=== PATIENT | male | born 2000 | race Caucasian/White ===

== ENCOUNTER 2025-03-14 12:56 | Emergency (ER) | payer BC, SELFPAY ==
--- OUTSIDE RECORDS SUMMARY | 2025-03-14 12:57 | XMS_ITS | Clinical Summary ---
Author Organization [place] Address [address] [place] [address] Care Team Providers Care Lubricator Granulator Name Role Phone No Ref-Primary, Physician Primary Care Provider Allergies Active Allergy Reactions Criticality Noted Date Comments No Known Drug Allergy 08/06/2001 Medications AMOXIL SUSR 250 MG/5ML OR one tsp tid for ten days qns 0 1 Active Additional Information Patient not taking.Reported on 02/24/2025 cyclobenzaprine (FLEXERIL) 5 MG tabletIndicatio ns:Lateral pain of left hip,Muscle spasm,Piriformi s muscle pain,Numbness,P ain of left lower extremity Take 1 tablet (5 mg) by mouth nightly as needed for muscle spasms. 30 tablet Active Active Problems Problem Noted Date Diagnosed Date NO ACTIVE PROBLEMS Encounters Date Type Department Care Team Description 02/24/2025 8:20 AM CDT Office Visit [facility] [address] [phone] Emma Simmons APRN CNP Piriformis muscle pain (Primary Dx); Lateral pain of left hip; Muscle spasm; Numbness; Pain of left lower extremity 02/24/2025 Travel 02/02/2025 Telephone [facility] [address] [phone] Emma Simmons APRN CNP 01/27/2025 Transcribe Orders GENERIC EXTERNAL DATA DEPARTMENT Cindy Cordero MD Lateral pain of left hip (Primary Dx); Thigh pain; Joint pain from Last 3 Months Family History Medical History Relation Comments Diabetes Paternal Grandmother Cancer No family hx of Heart Disease No family hx of Relation Status Comments Paternal Grandmother Social History Tobacco Use Types Packs/Day Years Used Date Smoking Tobacco: Never Alcohol Use Standard Drinks/Week Comments No 0 (1 standard drink = 0.6 oz pur e alcohol) Sex and Gender Information Value Date Recorded Sex Assigned at Not on file Legal Sex 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 Gender Identity Not on file Sexual Orientation Not on file Last Filed Vital Signs Vital Sign Reading Time Taken Comments Blood Pressure 120/78 02/24/2025 8:25 AM CDT Pulse 61 02/24/2025 8:25 AM CDT Temperature 36.1 C (97 F) 12/30/2002 1:35 PM WEB SERVICES DEVELOPER Respiratory Rate 16 02/24/2025 8:25 AM CDT Oxygen Saturation 99% 02/24/2025 8:25 AM CDT Inhaled Oxygen Concentration - - Weight 97.5 kg (215 lb) 02/24/2025 8:25 AM CDT Height 185.4 cm (6' 1) 02/24/2025 8:25 AM CDT Body Mass Index 28.37 02/24/2025 8:25 AM CDT Plan of Treatment Upcoming Encounters Date Type Department Care Team (Late st Contact Info) Description 03/16/2025 10:40 AM CDT Therapy Visit [facility] [address] [phone] Emma Simmons APRN APPLICATION CHEMIST [address] [place], [place] [phone] Christie Powell, PT YANELI MACK JACOB [address] [place] [address] [place] [id number] 03/23/2025 10:40 AM CDT Therapy Visit [facility] [address] [facility] [address] [place] [phone] Emma Simmons APRN APPLICATION CHEMIST [address] [place], [place] [phone] Christie Powell, PT YANELI MACK JACOB [address] [place] [address] DR MACK JACOB, [place] [id number] 03/23/2025 4:10 PM CDT Office Visit [facility] [place] [address] [facility] [address] [place] [phone] Edwar Person MD [address] [facility] [address] [place], [place] [phone] Health Maintenance Due Date Last Done Comments ADVANCE CARE PLANNING 1999 ANNUAL REVIEW OF HM ORDERS 1999 HIV SCREENING 2014 HEPATITIS C SCREENING 2017 COVID-19 Vaccine ( season) 2024 03/17/2022, 01/07/2021, 12/11/2020 YEARLY PREVENTIVE VISIT 08/09/2024 08/09/2023 PHQ-2 (once per calendar year) 2024 INFLUENZA VACCINE (Season Ended) 2025 08/25/2022, 09/03/2021, 09/21/2020, Additional history exists DTAP/TDAP/TD IMMUNIZATION (8 - Td or Tdap) 07/12/2027 07/12/2017, 04/14/2011, 03/25/2004, Additional history exists ZOSTER IMMUNIZATION (1 of 2) 2049 Pneumococcal Vaccine: Pediatrics (0 to 5 Years) and At-Risk Patients (6 to 49 Years) Aged Out 03/05/2001, 06/28/2000 No longer eligibl e based on patient's age to complete this topic HPV IMMUNIZATION Completed 09/11/2016, 06/07/2013 MENINGITIS IMMUNIZATION Completed 07/12/20 17, 09/11/2016, 04/14/2011 HEPATITIS B IMMUNIZATION Completed 018, 08/15/2017, 07/12/2017, Additional history exists MENINGITIS B IMMUNIZATION Aged Out No longer eligible based on patient's age to complete this topic Insurance [facility] Care Teams Lubricator Granulator Relationship Specialty Start Date End Date No Ref-Primary, Physician PCP - General 02/24/25
--- OUTSIDE RECORDS SUMMARY | 2025-03-14 12:57 | XMS_ITS | Encounter Summary ---
Author Organization [place] Address [address] [place] [address] Care Team Providers Care Retail Administrative Assistant Name Role Phone Unavailable Primary Care Provider Unavailabl e Encounter Details Date Type Department Care Team (Late st Contact Info) Description 02/02/2025 Telephone [facility] [address] [place] [phone] Emma Simmons APRN [address] [address] Social History Tobacco Use Types Packs/Day Years Used Date Smoking Tobacco: Never Alcohol Use Standard Drinks/Week Comments No 0 (1 standard drink = 0.6 oz pur e alcohol) Sex and Gender Information Value Date Recorded Sex Assigned at Not on file 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 Radha Bella on 02/02/2025 at 2:35 PM documented in this encounter Plan of Treatment Upcoming Encounters Date Type Department Care Team (Late st Contact Info) Description 03/16/2025 10:40 AM CDT Therapy Visit [facility] [address] [facility] [address] [place] [phone] Emma Simmons APRN MAPPING TECHNICIAN [address] [place] [address] Christie Powell, PT [address] [place] [id number] 03/23/2025 10:40 AM CDT Therapy Visit [facility] [address] [facility] [address] [place] [phone] Emma Simmons APRN MAPPING TECHNICIAN [address] [place] [address] Christie Powell, PT [address] [place] [phone] 03/23/2025 4:10 PM CDT Office Visit [facility] [place] [address] [facility] 3rd [place] [phone] Edwar Person MD [address] [facility] [address] [place], [place] [phone] documented as of this encounter Visit Diagnoses Not on filedocumented in this encounter
--- OUTSIDE RECORDS SUMMARY | 2025-03-14 12:57 | XMS_ITS | Encounter Summary ---
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 Gender Identity Not on file Sexual Orientation Not on file documented as of this encounter Plan of Treatment Upcoming Encounters Date Type Department Care Team (Late st Contact Info) Description 03/16/2025 10:40 AM CDT Therapy Visit [facility] [address] [phone] Emma Simmons APRN RESIDENT CARE TECHNICIAN [address] [place], [place] [address] Christie Powell, PT [facility] MACK JACOB [address] [place] [address] [place] [id number] 03/23/2025 10:40 AM CDT Therapy Visit [facility] [address] [facility] [address] [place] [phone] Emma Simmons APRN RESIDENT CARE TECHNICIAN [address] [place], [place] [phone] Christie Powell, PT YANELI MACK JACOB [address] [place] [address] [place] [phone] 03/23/2025 4:10 PM CDT Office Visit [facility] [place] [address] [facility] 3rd [place] [phone] Edwar Person MD [address] [facility] [address] [place], [place] [address] documented as of this encounter Visit Diagnoses Not on filedocumented in this encounter Care Teams Stock Associate Relationship Specialty Start Date End Date No Ref-Primary, Physician PCP - General 02/24/25 documented as of this encounter
--- OUTSIDE RECORDS SUMMARY | 2025-03-14 12:57 | XMS_ITS | Encounter Summary ---
Author Organization [place] Address [address] [place] [address] Care Team Providers Care Despatch Clerk Name Role Phone No Ref-Primary, Physician Primary Care Provider Reason for Referral * Rehab Therapy Physical Therapy (Priority: 1-2 Weeks) - Authorized Specialty Diagnoses / Procedures Referred By Jose Luis simpson Referred To Contact Physical Therapy Diagnoses Lateral pain of left hip Muscle spasm Piriformis muscle pain Numbness Pain of left lower extremity [address] [address] Phone: tel: Referral ID Status Reason Start Date Expiration Date V isits Requested Visits Authorized [id number] Authorized 03/16/2025 08/07/2025 15 13 Question Answer Course of Action: Evaluation and Treatment Specialty Services: Per Associated Diagnosis Patient Scheduling Instructions: [facility] will call you to coordinate your care as prescribed by your provider. If you don't hear from a sales representative printing within 2 business days, please call . Comments Please be aware that coverage of these services is subject to the terms and limitations of your health insurance plan. Call member services at your health plan with any benefit or coverage questions. [facility] will call you to coordinate your care as prescribed by your provider. If you don't hear from a sales representative printing within 2 business days, please call . Reason for Visit * Reason Comments New Patient New Med Spine Leonidas * Consultation (Routine) - Authorized Specialty Diagnoses / Procedures Referred By Contbrie t Referred To Contact Diagnoses Lateral pain of left hip Thigh pain Joint pain [place] [address] Phone: tel: fax: Referral ID Status Reason Start Date Expiration Date V isits Requested Visits Authorized [id number] Authorized 01/08/2025 07/07/2025 [id number] Encounter Details Date Type Department Care Team (Latest Contact Info) Description 02/24/2025 8:20 AM CDT Office Visit [facility] [address] [place] [address] Emma Simmons APRN GETTERING FILAMENT MACHINE OPERATOR [address] [place] [id number] Piriformis muscle pain (Primary Dx); Lateral pain of left hip; Muscle spasm; Numbness; Pain of left lower extremity Social History Tobacco Use Types Packs/Day Years Used Date Smoking Tobacco: Never Alcohol Use Standard Drinks/Week Comments No 0 (1 standard drink = 0.6 oz pur e alcohol) Sex and Gender Information Value Date Recorded Sex Assigned at Not on file 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 Sex Male 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 Gender Identity Not on file Sexual Orientation Not on file documented as of this encounter Last Filed Vital Signs Vital Sign Reading Time Taken Comments Blood Pressure 120/78 02/24/2025 8:25 AM CDT Pulse 61 02/24/2025 8:25 AM CDT Temperature - - Respiratory Rate 16 02/24/2025 8:25 AM CDT Oxygen Saturation 99% 02/24/2025 8:25 AM CDT Inhaled Oxygen Concentration - - Weight 97.5 kg (215 lb) 02/24/2025 8:25 AM CDT Height 185.4 cm (6' 1) 02/24/2025 8:25 AM CDT Body Mass Index 28.37 02/24/2025 8:25 AM CDT documented in this encounter Patient Instructions * Patient Instructions* Emma Simmons APRN GETTERING FILAMENT MACHINE OPERATOR - 02/24/2025 8:20 AM CDT It was a pleasure seeing you in the clinic today. As discussed, we made the following updates to your plan of care: An order for physical therapy was added today. Physical therapy schedulers should call you in the next few days to schedule an appointment. You may also call [phone] to arrange an appointment atany of the [facility] outpatient physical therapy locations. It will be very important for you to do the physical therapy exercises on a regular basis to decrease your pain and prevent future flares of pain. I added an order for left piriformis steroid injection with Dr Person. You will receive a call to help schedule the appointment. Please let me know if you have any questions or concerns. Cyclobenzaprine was prescribed today. This is a muscle relaxer that may be taken for muscle tightness and pain as needed. This drug can cause sedation / drowsiness, so when taking this medication avoid driving or other tasks that require you to be alert. Do not drink alcohol while taking this medication. Let's plan to follow up 2 weeks after the steroid injection to see how you are doing and talk aboutnext steps. Thank you, Emma Simmons NP Physical Medicine and Rehabilitation, Medical Spine PM&R clinic PM&R clinic documented in this encounter Progress Notes * Emma Simmons APRN CNP - 02/24/2025 8:20 AM CDT Today's Date: 02/24/2025 Patient seen at the request of Cindy Cordero for an opinion and evaluation of left leg pain. HISTORY OF PRESENT ILLNESS: Stevenson Willis is a 24 year old male who presents with a chief complaint of pain. He was seen today in the clinic. 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 During the program he began to have severe pain affecting the left hip, buttocks, and radiating to the left knee. He had asignificant amount of trouble walking down stairs. He has seen multiple specialists in regards to this issue: he estimates seeing 8 providers thus far, between the [place] [facility] and [facility]. Workup thus far has included X rays and MRIs of the knee, hip, and back. Today he describes: -Pain radiating from left lateral hip, lateral left thigh, posterolateral left knee, into the left calf -describes quality of pain varies: Tight, locked up, throbbing, tingling, sharp He does not have back pain per se, but notes pressing a particular area in the left lumbosacral junction is uncomfortable/tender. He notices fairly immediate numbness in the left leg when he sits on the toilet. He otherwise does not notice any numbness at other times a day. When in a squatting position, he finds left leg range of motion is more limited. Additionally he finds that he loses his balance or feels weaker with the left leg when he tries to stand from a squatting position. He also feels somewhat weak when doing lunges with his left leg extended to the back. He does not notice any changes with his gait. The pain is most bothersome at night. He finds it hard to get comfortable to get to sleep. He notes that the initial injury in 2021 was severely painful. The current level of pain is less severe than in 2021, but ongoing/persistent. He did multiple rounds of physical therapy both with the [place] [facility] and through [facility] ([facility]) without any significant improvement. He states that stretching programs in the past have not helped. Since the injury he stopped running and swimming. He did try a left intra-articular hip diagnostic injection 12/10/2024 which helped with groin pain only. Unfortunately he had unchanged ongoing gluteal, thigh, and knee pain which were the more bothersome areas of pain. As such, orthopedics recommended he would not be a good candidate for left hip arthroscopy. Aggravating factors include: Standing, sitting, exercise, long car rides Relieving factors include: None Today, he rates the pain 3/10. Patient states sleep is negatively affected. He denies falls, weakness, bowel or bladder incontinence, saddle anesthesia, unintentional weight loss, fevers/chills, or night sweats. PRIOR INJURIES/TREATMENT: Ice/Heat: has tried both Brace: none Physical Therapy: +PT in [place] and in [place] [facility] (for [facility]) - none has significantly helped - Current Pain Medications - none - Prior/Trialed Pain Medications - ibuprofen Prior Procedures: Date Procedure Improvement (%) 12/10/24 Diagnostic left hip steroid injection Helped with anterior hip/groin pain, radiating LLE pain was the same Prior Related Surgery: none Other (acupuncture, OMT, CMM, TENS, DME, etc.): Tried chiropractor, didn't help Specialists Seen - (with most recent, available notes and clinic visits reviewed) 1. [place] [facility] - record not available 2. [facility] 3. [facility] - Dr Cordero IMAGING - reviewed CT Left hip 01/21/2024 - [facility] CONCLUSION: 1. Decreased anteversion/borderline slight retroversion of the superior acetabulum. 2. No evidence of significant femoral cam morphology. 3. No CT evidence of joint space narrowing or premature osteoarthritis. MRI left knee - 01/21/2024 - [facility] CONCLUSION IMPRESSION: 1. No internal derangement identified including no evidence of meniscal tear, ligamentous injury, fracture or chondral defect. Normal appearance of the IT band and imaged distal biceps femoris. 2. No joint effusion. MRI L hip [facility] 01/09/2024 1. Tiny linear defect at the anterior chondrolabral junction is suspicious for a partial undersurface labral detachment. 2. Otherwise unremarkable left hip MRI without contrast. MRI lumbar spine 10/22/2023 FINDINGS: Normal vertebral body alignment. No fractures. No vertebral body loss of height. No spondylolisthesis. No ligamentous injury. No suspicious osseous lesions. Normal conus terminates at L2. T12-L1 L1-2 L2-3: No spinal canal or neural foraminal narrowing. L3-4: No spinal canal neural foraminal narrowing. L4-5: No spinal canal neural foraminal narrowing. L5-S1: No narrowing of spinal canal. No vanna impingement of the traversing S1 nerve roots. No neural foraminal narrowing. Normal visualized SI joints. Normal paraspinal soft tissues. Review Of Systems: I am responding to those symptoms which are directly relevant to the specific indication for my consultation. I recommend that the patient follow up with their primary or referring provider to pursueany other symptoms which may be of concern. Medical History: Chronic left lower extremity pain He has a past surgical history that includes no history of surgery. Family History His family history includes Diabetes in his paternal grandmother. 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 Performs ADLs/IADLs independently. He reports that he has never smoked. He does not have any smokeless tobacco history on file. He reports that he does not drink alcohol and does not use drugs. Current Medications: He has a current medication list which includes the following prescription(s): amoxil. Allergies: -- No Known Drug Allergy PHYSICAL EXAM BP 120/78 (BP Location: Right arm, Patient Position: Sitting, Cuff Size: Adult Large) Pulse 61 Resp 16 Ht 1.854 m (6' 1) Wt 97.5 kg (215 lb) SpO2 99% BMI 28.37 kg/m?? --CONSTITUTIONAL: Vital signs as above. No acute distress. The patient is well nourished and well groomed. --PSYCHIATRIC: The patient is awake, alert, oriented to person, place, time and answering questionsappropriately with clear speech. Appropriate mood and affect --SKIN: Posterior torso is clean, dry, intact without rashes. --RESPIRATORY: Normal rhythm and effort. No abnormal accessory muscle breathing patterns noted. --GROSS MOTOR: Easily arises from a seated position. Toe walking and heel walking are normal. Standing at the counter for stability, is able to stand on one leg and perform 5 reps lifting onto toes on both sides --STANDING EXAMINATION: Gait is non-antalgic. Normal lumbar lordosis noted, no lateral shift. --LOWER EXTREMITY MOTOR TESTING: Plantar flexion left 5/5, right 5/5 Dorsiflexion left 5/5, right 5/5 Great toe MTP extension left 5/5, right 5/5 Knee flexion left 5/5, right 5/5 Knee extension left 5/5, right 5/5 Hip flexion left 5/5, right 5/5 --MUSCULOSKELETAL: Lumbar spine inspection reveals no evidence of deformity. Range of motion is notlimited in lumbar flexion, extension, lateral rotation. No tenderness to palpation lumbar spine. Straight leg raise negative bilaterally. Facet loading maneuvers are negative bilaterally. Pain with palpation of the left piriformis. Piriformis seated stretch positive on the left. No pain with palpation of the right piriformis No pain with piriformis seated stretch test on the right --SACROILIAC JOINT: No pain with palpation of SI joint. Distraction negative. Saman negative. Josue's negative bilaterally. Gaenslen's negative bilaterally. Sacroiliac Joint Compression Test negative bilaterally. Sacral Thrust/Georgetown's Test negative bilaterally. --HIPS: Full range of motion bilaterally. FABERs negative bilaterally. No pain with logrolling. No pain with palpation of the greater trochanters. --NEUROLOGIC: 2/4 patellar and achilles reflexes bilaterally. Sensation to light touch is intact inthe bilateral L4, L5, and S1 dermatomes. No clonus. --VASCULAR: Warm lower limbs bilaterally. There is no pitting edema of the bilateral lower extremities. 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 He has undergone considerable diagnostic workup including X rays and MRIs of the knee, hip, and back. He has experienced incomplete/inadequate symptomatic relief from repeated courses of physical therapy, diagnostic left hip injection, and orthopedics evaluations. He has ongoing pain radiating from left lateral hip, lateral left thigh, posterolateral left knee, into the left calf. There is intermittent left leg numbness. On exam today there is pain with palpation of the left piriformis and positive piriformis stretch test on the left. PLAN: -The available imaging/reports reviewed -Add diagnostic/therapeutic left piriformis muscle steroid injection with Dr. Person. I asked him to keep a close eye on the level of pain after the steroid injection (keep a pain diary if needed) tobetter understand the diagnostic response. If he does have a diagnostic response but not a therapeutic response, can consider Botox injections instead -Trial cyclobenzaprine at bedtime PRN. We reviewed that this muscle relaxer can cause drowsiness and to avoid activities which require concentration, including driving and that this medicine should not be taken with alcohol. Patient expressed understanding. - Add an order for PT specific for left piriformis - We did discuss the option of updating the MRI of the lumbar spine. If there is no diagnostic or therapeutic relief after the left piriformis muscle steroid injection, would suggest this as a next step - RTC for procedure Ready to learn, no apparent learning barriers. Education provided on treatment plan according to patient's preferred learning style. Patient verbalizes understanding. Emma Simmons NP Physical Medicine & Rehabilitation 85 minutes spent by me on the date of the encounter doing chart review, history and exam, documentation and further activities per the note documented in this encounter Plan of Treatment Upcoming Encounters Date Type Department Care Team (Late st Contact Info) Description 03/16/2025 10:40 AM CDT Therapy Visit [address] [phone] Emma Simmons APRN [facility] [place] [address] Christie Powell, PT [address] [place] [id number] 03/23/2025 10:40 AM CDT Therapy Visit [address] [place] [phone] Emma Simmons APRN [facility] [place] [address] Christie Powell, PT [address] [place] [id number] 03/23/2025 4:10 PM CDT Office Visit [facility] [address] [place] [address] [address] [place] [phone] Edwar Person MD [address] [place] [address] [address] [place] [address] Scheduled Referrals Name Type Priority Associated Diagnoses Orde r Schedule Physical Therapy Pharmacy Account Director Referral Referral Priority: 1-2 Weeks Lateral pain of left hip Muscle spasm Piriformis muscle pain Numbness Pain of left lower extremity Expected: 02/24/2025 (Approximate), Expires: 02/24/2026 documented as of this encounter Visit Diagnoses Diagnosis Piriformis muscle pain- Primary Mylagia and myositis, unspecified Lateral pain of left hip Pain in joint, pelvic region and thigh Muscle spasm Spasm of muscle Numbness Disturbance of skin sensation Pain of left lower extremity documented in this encounter Care Teams Despatch Clerk Relationship Specialty Start Date End Date No Ref-Primary, Physician PCP - General 02/24/25 documented as of this encounter
--- OUTSIDE RECORDS SUMMARY | 2025-03-14 12:57 | XMS_ITS | Clinical Summary ---
Author Organization [facility] Address [address] [place] [address] Care Team Providers Care Transfer Table Operator Name Role Phone Pcp, No Primary Care Provider Unavailabl e Allergies No known active allergies Medications valACYclovir (Valtrex) 1 gram tabletIndication s:Recurrent cold sores,Genital herpes simplex, unspecified site Take 1 Tablet (1,000 mg) by mouth every 12 hours. As needed for flare-ups. 01/28/2024 Active Active Problems No known active problems Immunizations Immunization Administration Dates Next Due Adenovirus Type 4 and 7 07/12/2017 COVID-19 vaccine (Moderna 100mcg/0.5mL) PF, MDV 03/17/2022,01/07/2021,12/11/2020 DTP 03/25/2004, 9,1999,05/18 DTaP 1999,1999,1999 DTaP-HIB (TriHIBIT) 06/28/2000 HIB HbOC (HibTITER) 1999,1999,1998 HPV 9 (Gardasil 9) 09/11/2016 HepA-HepB (Twinrix) 05/22/2018,08/15/2017,2016 Hepatitis A (Peds) 09/11/2016 Hepatitis B (Peds) 01/19/2000,1999, 999 Hepatitis B, Unspecified 01/19/2000,1999,0 1999 Human Papilloma Virus Vaccine 06/07/2013 Inactivated Polio Vaccine 08/15/2017,,01/19/2000,07/19,1999 Influenza A (H1N1), Inactivated 11/24/2009,09/16 Influenza Virus, Unspecified 08/25/2022, 09/03/2021,09/21/2020,09/23,09/11/2017 Influenza, IIV3 (Age 6-35 mos) 10/07/2012,2010 Influenza, IIV3 (Age >=3 years) 10/07/20 12,10/13/2011,08/26/2008,08/21,09/12/2006 Influenza, Injectable, Mdck, Quadrivalent, W/preservative 09/11/2017 Chadian Encephalitis 07/04/2021,06/03/2021 MENINGOCOCCAL VACCINE 2 VIAL 2MO-55YO (MENVEO) 09/11/2016 MMR 03/25/2004,06/28/2000 Meningococcal Vaccine (Menactra) 07/12/2017,04/05 Pneumococcal conj 7-Valent (Prevnar 7) 1,06/28/2000 Rotavirus Pentavalent (ROTATEQ) 1999 Tdap 04/14/2011 Tdap, Unspecified 07/12/2017 Typhoid (injectable) 10/07/2019,08/15/2017 Varicella Vaccine 08/15/2017, 7,04/14/2011,06/28 Family History Medical History Relation Name Comments Good Health Father Good Health Mother Diabetes Paternal Grandmother Relation Name Status Comments Father Alive Mother Alive Paternal Grandmother Social History Tobacco Use Types Packs/Day Years Used Date Smoking Tobacco: Never Smokeless Tobacco: Never Tobacco Cessation:Counseling Given: Yes Alcohol Use Standard Drinks/Week Comments Yes 0 (1 standard drink = 0.6 oz pur e alcohol) 2 times per month PHQ-2 Answer Date Recorded PHQ-2 TOTAL SCORE 0 12/31/2023 Social Connections Answer Date Recorded Frequency of Communication with Friends and Fami ly 0 08/09/2023 Financial Resource Strain Answer Date R ecorded Difficulty of Paying Living Expenses 3 08/09/2023 Difficulty of Paying Living Expenses Not on file 08/09/2023 Food Insecurity Answer Date Recorded Worried About Running Out of Food in the Last Ye ar 1 08/09/2023 Transportation Needs Answer Date Record ed Lack of Transportation (Medical) 1 08/09/2023 Housing Stability Answer Date Recorded Unable to Pay for Housing in the Last Year 1 08/09/2023 Sex and Gender Information Value Date Recorded Sex Assigned at Not on file 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 Gender Identity Not on file Sexual Orientation Not on file Obstetrics History Last Filed Vital Signs Vital Sign Reading Time Taken Comments Blood Pressure 106/74 05/04/2024 2:45 PM CDT Pulse 70 05/04/2024 2:45 PM CDT Temperature 36.9 C (98.4 F) 05/04/2024 2:45 PM CDT Respiratory Rate 18 05/04/2024 2:45 PM CDT Oxygen Saturation 97% 05/04/2024 2:45 PM CDT Inhaled Oxygen Concentration - - Weight 94.7 kg (208 lb 11.2 oz) 05/04/2024 2:45 PM CDT Height 185.4 cm (6' 1) 12/31/2023 8:08 AM 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 Body Mass Index 27.53 12/31/2023 8:08 AM 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 Plan of Treatment Health Maintenance Due Date Last Done Comments HIV for age 15-65 2014 Hepatitis C screening for age 18-79 2017 COVID-19 vaccine series ( season) 2024 03/17/2022, 01/07/2021, 12/11/2020 BMI (ht and wt on same day) for age 18+ 12/31/2024 12/31/2023, 09/20/2023, 08/09/2023, Additional history exists Depression screening for age 12+ 12/31/2024 12/31/2023, 08/09/2023 Influenza Vaccine (Season Ended) 2025 08/25/2022, 09/03/2021, 09/21/2020, Additional history exists Tetanus booster 07/12/2027 07/12/2017, 04/14/2011 Pneumococcal series for age 6-49 Aged Out 03/05/2001, 06/28/2000 No longer eligibl e based on patient's age to complete this topic HPV series for age 9-26 Completed 09/11/2016, 06/07 Tdap Completed 07/12/2017, 04/14/2011 Insurance * Guarantor: Stevenson Willis Account Type Relation to Patient Date of Phone Billing Address Personal/Family Self [address] [place] [address] [facility] * Guarantor: Stevenson Willis Account Type Relation to Patient Date of Phone Billing Address Workers Comp Self [address] [place] [address] Care Teams Transfer Table Operator Relationship Specialty Start Date End Date Pcp, No . PCP - General 12/28/14
[2025-03-14 13:01] VITALS: BP 118/88; PULSE 67; RESP 18; TEMP 36.5; O2SAT 97; BMI 27.7
--- NOTE | 2025-03-14 13:20 | ED.GENADULT ---
HPI - General Adult General Chief complaint: Extremity Pain/Injury, Upper Stated complaint: fish hook in L index finger Time Seen by Provider: 03/14/25 13:00 History of Present Illness HPI narrative: Patient is a 24-year-old gentleman who is up-to-date on his tetanus shot who comes in with a barbed fishing hook in his left index finger palmar surface distal. He is intact neurologically. Apparently he helped himself a big [place] and when he was taking the fish off the hook he imbedded into his finger. He is otherwise feeling fine no other complaints. Related Data Home Medications ?Medication ?Instructions ?Recorded ?Confirmed No Known Home Medications 03/14/25 03/14/25 Allergies Allergy/AdvReac Type Severity Reaction Status Date / Time No Known Drug Allergies Allergy Verified 03/14/25 13:06 Review of Systems Status of ROS: Reports: 10 or more systems reviewed and unremarkable except as noted in History and below PFSH PFS Social History Smoking Status: Never smoker How often do you have a drink containing alcohol: 2-3 times a week How often do you have six or more drinks on one occasion: Never AUDIT-C Alcohol total score: 3 Non-prescribed substance use: denies use Exam Const: Vital Signs, click to edit/add: Vital Signs - 24 hr 03/14/25 13:01 Temperature 97.7 F Pulse Rate [Pulse Oximeter] 67 Respiratory Rate 18 Blood Pressure [Le ft Upper Arm] 118/88 Pulse Oximetry 97 Oxygen Delivery Me thod Room Air Course Vital Signs Vital signs: Initial Vital Signs Temperature 97.7 F 03/14/25 13:01 Temperature Source Temporal Artery Scan 03/14/25 13:01 Pulse Rate 67 03/14/25 13:01 Respiratory Rate 18 03/14/25 13:01 Blood Pressure 118/88 03/14/25 13:01 Blood Pressure Mean 98 03/14/25 13:01 Pulse Oximetry 97 03/14/25 13:01 Oxygen Delivery Method Room Air 03/14/25 13:01 Vital Signs Temperature 97.7 F 03/14/25 13:01 Pulse Rate 67 03/14/25 13:01 Respiratory Rate 18 03/14/25 13:01 Blood Pressure 118/88 03/14/25 13:01 Pulse Oximetry 97 03/14/25 13:01 Oxygen Delivery Method Room Air 03/14/25 13:01 Temperature 97.7 F 03/14/25 13:01 Pulse Rate 67 03/14/25 13:01 Respiratory Rate 18 03/14/25 13:01 Blood Pressure 118/88 03/14/25 13:01 Pulse Oximetry 97 03/14/25 13:01 Oxygen Delivery Method Room Air 03/14/25 13:01 Medical Decision Making MDM Narrative Medical decision making narrative: After explaining the risks and benefits including the left index finger I did provide anesthesia with 2% lidocaine without epinephrine. I then made a small incision removing the barbed hook from his finger. We did instruct him on wound care and dressed the wound. He is up-to-date on his tetanus shot will be discharged home with outpatient follow-up as needed. Discharge Plan Discharge Clinical Impression: [place] injury to finger Patient Disposition: Home, Self-Care Condition: Stable Additional Instructions: Dressing changes as needed Follow-up with your doctor as needed Activity Level: No Restrictions Discharge Diet: Regular Prescriptions: No Action No Known Home Medications Follow Up/Referrals: Artemio Snow MD [Primary Care Provider] - Stand Alone Forms: [email or web address] Info Instructions
[2025-03-14] MEDS: lidocaine HCL 2 % MULTIDOSE 20 ML VIAL INJECTION (13:34)
--- OUTSIDE RECORDS SUMMARY | 2025-03-14 13:40 | XMS_ITS | Clinical Summary ---
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 PCP - General 12/28/14
--- OUTSIDE RECORDS SUMMARY | 2025-03-14 13:40 | XMS_ITS | Continuity of Care Document ---
Author Name [facility] Organization [facility] Care Team Providers Care Line Erector Apprentice Name Role Phone [facility] Unavailable Unavailable Problems Combined list of problems from Department of Defense and Veterans Affairs facilities. It does not include entries that were removed or entered in error. Problem Status Onset Date Problem Type Date of Resolution Comments Source OTITIS MEDIA LEFT EAR Inactive 3 Condition [facility] visit for: occupational health / fitness exam Inactive 3 Condition [facility] UPPER RESPIRATORY INFECTION ACUTE Inactive 3 Condition [facility] Risk Factor Counseling Individual, 30 Minutes Inactive 3 Condition [facility] Other specified counseling Active 8 Condition [facility] Depression ([facility] [id number]) Active Condition [facility] Pain of left hip joint Active Condition [facility] Diagnosis: ICD-10-CM M25.552 Pain in left hip Active Diagnosis [facility] Diagnosis: ICD-10-CM Z71.89 Other specified counseling Active Diagnosis [facility] Diagnosis: ICD-10-CM Z02.89 Encounter for other administrative examinations Active Diagnosis [facility] Allergies, Adverse Reactions, Alerts Combined list of allergies from Department of Defense and Veterans Affairs facilities. It does not include entries that were removed or entered in error. Substance Category Reaction Severity Reaction type Status Date Reported Comments Source No Known Allergies Drug allergy (disorder) active 02/13/2018 John Paul Magaña [facility] ([facility]) Immunizations Combined list of available immunizations from the Department of Defense and Veterans Affairs facilities. 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 (MOD) complet ed SARS-COV- 2 (COVID-19 ) vaccine, mRNA, spike protein, LNP, preservat zackery free, 100 mcg or 50 mcg dose DoD influenza, injectable, quadrivalent, contains preservative 0 2020 [id number] 158 Seqirus (SEQ) complet ed influenza , injectabl e, quadrival ent, contains preservat zackery DoD Influenza, injectable, quadrivalent, preservative free 0 2020 [id number] 787 150 Seqirus (SEQ) complet ed Influenza , injectabl e, quadrival ent, preservat zackery free DoD Croatian Encephalitis vaccine for intramuscular administratio n 2 2020 [id number] 134 Valneva (RUIZ) complet ed Croatian Encephali tis vaccine for intramusc ular administr ation DoD Croatian Encephalitis vaccine for intramuscular administratio n 1 2020 UNK 134 Unknown (UNK) comple t ed Croatian Encephali tis vaccine for intramusc ular administr ation DoD SARS-COV-2 (COVID-19) vaccine, mRNA, spike protein, LNP, preservative free, 100 mcg or 50 mcg dose 2 2020 BARRERA DWYER [id number] 207 [employer]. (MOD) complet ed SARS-COV- 2 (COVID-19 ) vaccine, mRNA, spike protein, LNP, preservat zackery free, 100 mcg or 50 mcg dose DoD SARS-COV-2 (COVID-19) vaccine, mRNA, spike protein, LNP, preservative free, 100 mcg or 50 mcg dose 1 2020 LAYTON EDWARDS [id number] 207 [employer]. (MOD) complet ed SARS-COV- 2 (COVID-19 ) vaccine, mRNA, spike protein, LNP, preservat zackery free, 100 mcg or 50 mcg dose DoD influenza, injectable, quadrivalent- pf 2019 [id number] Seqirus complet ed influenza , injectabl e, quadrival ent-pf 09/21/20 Given Ambulat ory Pharmac y Influenza, injectable, quadrivalent, preservative free 0 2019 [id number] 150 Seqirus (SEQ) comple t ed Influenza , injectabl e, quadrival ent, preservat zackery free DoD typhoid Vi capsular polysaccharid e vac 2018 [id number] 101 sanofi pasteur complet ed typhoid Vi capsular polysacch aride vac 10/07/19 Given Ambulat ory Pharmac y typhoid Vi capsular polysaccharid e vac 2018 [id number] 101 sanofi pasteur complet ed typhoid Vi capsular polysacch aride vac 10/07/19 Given Ambulat ory Pharmac y typhoid Vi capsular polysaccharid e vaccine 2 2018 [id number] 101 Sanofi Pasteur (PMC) complet ed typhoid Vi capsular polysacch aride vaccine DoD influenza, injectable, quadrivalent- pf 2018 [id number] 150 Seqirus complet ed influenza , injectabl e, quadrival ent-pf 09/23/19 Given Ambulat ory Pharmac y influenza, injectable, quadrivalent- pf 2018 [id number] 982 150 Seqirus complet ed influenza , injectabl e, quadrival ent-pf 09/23/19 Given Ambulat ory Pharmac y Influenza, injectable, quadrivalent, preservative free 0 2018 [id number] 982 150 Seqirus (SEQ) complet ed Influenza , injectabl e, quadrival ent, preservat zackery free DoD Influenza, inj, MDCK, quadrivalent- pf 2018 zzLef t Arm [id number] Seqirus complet ed Influenza , inj, MDCK, quadrival ent-pf 01/16/19 Given Ambulat ory Pharmac y Influenza, inj, MDCK, quadrivalent- pf 2018 [id number] 171 Seqirus complet ed Influenza , inj, MDCK, quadrival ent-pf 01/16/19 Given Ambulat ory Pharmac y Influenza, injectable, Madin Clementine Canine Kidney, preservative free, quadrivalent 1 2018 Unknown, Provider [id number] Seqirus (SEQ) complet ed Influenza , injectabl e, Madin Clementine Canine Kidney, preservat zackery free, quadrival ent DoD hepatitis A-hepatitis B vaccine 2017 zzLef t Arm [id number] 104 GlaxoSmithKli ne complet ed hepatitis A-hepatit is B vaccine 05/22/18 Given Ambulat ory Pharmac y hepatitis A-hepatitis B vaccine 2017 [id number] 104 GlaxoSmithKli ne complet ed hepatitis A-hepatit is B vaccine 05/22/18 Given Ambulat ory Pharmac y hepatitis A and hepatitis B vaccine 3 2017 QUANG KABA [id number] 104 SmithKline (SKB) complet ed hepatitis A and hepatitis B vaccine DoD influenza, injectable, quadrivalent- pf 2016 zzRig ht Arm [id number] 150 Seqirus complet ed influenza , injectabl e, quadrival ent-pf 10/04/17 Given Ambulat ory Pharmac y influenza, injectable, quadrivalent- pf [id number] 150 Seqirus complet ed influenza , injectabl e, quadrival ent-pf 10/04/17 Given Ambulat ory Pharmac y Influenza, injectable, quadrivalent, preservative free 1 2016 KEVIN WAYNE [id number] 150 Seqirus (SEQ) complet ed Influenza , injectabl e, quadrival ent, preservat zackery free DoD influenza virus vaccine, inactivated [id number] 88 Seqirus complet ed influenza virus vaccine, inactivat ed 09/11/17 Given Ambulat ory Pharmac y influenza virus vaccine, inactivated [id number] 88 Seqirus complet ed influenza virus vaccine, inactivat ed 09/11/17 Given Ambulat ory Pharmac y Influenza, injectable, Madin Clementine Canine Kidney, quadrivalent with preservative 0 [id number] 186 Seqirus (SEQ) comple t ed Influenza , injectabl e, Madin Clementine Canine Kidney, quadrival ent with preservat zackery DoD hepatitis A-hepatitis B vaccine 2016 zzLef t Arm [id number] 104 GlaxoSmithKli ne complet ed hepatitis A-hepatit is B vaccine 08/15/17 Given Ambulat ory Pharmac y varicella virus vaccine 2016 zzLef t Arm [id number] 21 Merck & Company Inc complet ed varicella virus vaccine 08/15/17 Given Ambulat ory Pharmac y [facility], inactivated [id number] 10 sanofi pasteur complet ed polioviru s vaccine, inactivat ed 08/15/17 Given Ambulat ory Pharmac y typhoid Vi capsular polysaccharid e vac 2016 zzLef t Arm Y0989-7 101 sanofi pasteur complet ed typhoid Vi capsular polysacch aride vac 08/15/17 Given Ambulat ory Pharmac y typhoid Vi capsular polysaccharid e vac 2016 [id number] 101 sanofi pasteur complet ed typhoid Vi capsular polysacch aride vac 08/15/17 Given Ambulat ory Pharmac y hepatitis A-hepatitis B vaccine 2016 [id number] 104 GlaxoSmithKli wv complet ed hepatitis A-hepatit is B vaccine 08/15/17 Given Ambulat ory Pharmac y varicella virus vaccine 2016 [id number] 21 Merck & Company Inc complet ed varicella virus vaccine 08/15/17 Given Ambulat ory Pharmac y poliovirus vaccine, inactivated 2016 [id number] 10 sanofi pasteur complet ed polioviru s vaccine, inactivat ed 08/15/17 Given Ambulat ory Pharmac y poliovirus vaccine, inactivated 1 2016 TONNY FLETCHER [id number] 10 Sanofi Pasteur (PMC) complet ed polioviru s vaccine, inactivat ed DoD varicella virus vaccine 2 2016 TONNY FLETCHER [id number] 21 Merck (MSD) complet ed varicella virus vaccine DoD typhoid Vi capsular polysaccharid e vaccine 1 2016 TONNY FLETCHER A4230-3 101 Sanofi Pasteur (PMC) complet ed typhoid Vi capsular polysacch aride vaccine DoD hepatitis A and hepatitis B vaccine 2 2016 TONNY FLETCHER [id number] 104 SmithKline (SKB) complet ed hepatitis A and hepatitis B vaccine DoD measles and rubella virus vaccine 0 2016 04 () Not Given measles and rubella virus vaccine DoD meningococcal A,C,Y,W-135 (MCV4P) 2016 zzLef t Arm [id number] 114 sanofi pasteur complet ed meningoco ccal A,C,Y,W-1 35 (MCV4P) 07/12/17 Given Ambulat ory Pharmac y adenovirus vaccine, live 2016 [id number] 9 143 Unknown complet ed adenoviru s vaccine, live 07/12/17 Given Ambulat ory Pharmac y tetanus, diphtheria, acellular pertu is 2016 Boris ht Arm [id number] 115 Unknown complet ed tetanus, diphtheri a, acellular pertussis 07/12/17 Given Ambulat ory Pharmac y hepatitis A-hepatitis B vaccine 2016 zzLef t Arm [id number] 104 GlaxoSmithKli ne complet ed hepatitis A-hepatit is B vaccine 07/12/17 Given Ambulat ory Pharmac y varicella virus vaccine 2016 zzLef t Arm [id number] 21 Merck & Company Inc complet ed varicella virus vaccine 07/12/17 Given Ambulat ory Pharmac y varicella virus vaccine 2016 [id number] 21 Merck & Company Inc complet ed varicella virus vaccine 07/12/17 Given Ambulat ory Pharmac y adenovirus vaccine, live 2016 [id number] 9 143 Unknown complet ed adenoviru s vaccine, live 07/12/17 Given Ambulat ory Pharmac y tetanus, diphtheria, acellular pertu is 2016 [id number] 115 Unknown complet ed tetanus, diphtheri a, acellular pertussis 07/12/17 Given Ambulat ory Pharmac y meningococcal A,C,Y,W-135 (MCV4P) 2016 [id number] 114 sanofi pasteur complet ed meningoco ccal A,C,Y,W-1 35 (MCV4P) 07/12/17 Given Ambulat ory Pharmac y hepatitis A-hepatitis B vaccine 2016 [id number] 104 GlaxoSmithKli ne complet ed hepatitis A-hepatit is B vaccine 07/12/17 Given Ambulat ory Pharmac y TDAP 2016 115 complet ed HISTORICA L INFORMATI ON - FROM OTHER REGISTRY, [facility] varicella virus vaccine 1 2016 BARRERA HERNANDEZ [id number] 21 Merck (MSD) complet ed varicella virus vaccine DoD hepatitis A and hepatitis B vaccine 1 2016 BARRERA HERNANDEZ [id number] 104 SmithSkycheckinine (SKB) complet ed hepatitis A and hepatitis B vaccine DoD meningococcal polysaccharid e (groups A, C, Y and W-135) diphtheria toxoid conjugate vaccine (MCV4P) 1 2016 BARRERA HERNANDEZ [id number] 114 Sanofi Pasteur (PMC) complet ed meningoco ccal polysacch aride (groups A, C, Y and W-135) diphtheri a toxoid conjugate vaccine (MCV4P) DoD tetanus toxoid, reduced diphtheria toxoid, and acellular pertu is vaccine, adsorbed 1 2016 BARRERA HERNANDEZ [id number] 115 Other (OTH) complet ed tetanus toxoid, reduced diphtheri a toxoid, and acellular pertussis vaccine, adsorbed DoD Adenovirus, type 4 and type 7, live, oral 1 2016 BARRERA HERNANDEZ [id number] 9 143 Other (OTH) complet ed Adenoviru s, type 4 and type 7, live, oral DoD HEP A, PED/ADOL, 2 DOSE 2015 83 complet ed HISTORICA L INFORMATI ON - FROM OTHER REGISTRY, [facility] HPV9 2015 165 complet ed HISTORICA L INFORMATI ON - FROM OTHER REGISTRY, [facility] MENINGOCOCCAL MCV4O 2015 136 complet ed HISTORICA L INFORMATI ON - FROM OTHER REGISTRY, [facility] HPV, QUADRIVALENT 2012 62 complet ed HISTORICA L INFORMATI ON - FROM OTHER REGISTRY, [facility] INFLUENZA, SPLIT VIRUS, TRIVALENT, PF 2011 140 complet ed HISTORICA L INFORMATI ON - FROM OTHER REGISTRY, [facility] INFLUENZA, SPLIT VIRUS, TRIVALENT, PF 2010 140 complet ed HISTORICA L INFORMATI ON - FROM OTHER REGISTRY, [facility] MENINGOCOCCAL MCV4P 2010 114 complet ed HISTORICA L INFORMATI ON - FROM OTHER REGISTRY, [facility] TDAP 2010 115 complet ed HISTORICA L INFORMATI ON - FROM OTHER REGISTRY, [facility] VARICELLA 2010 21 complet ed HISTORICA L INFORMATI ON - FROM OTHER REGISTRY, [facility] NOVEL INFLUENZA-H1N 1-09, ALL FORMULATIONS 2009 128 complet ed HISTORICA L INFORMATI ON - FROM OTHER REGISTRY, [facility] NOVEL INFLUENZA-H1N 1-09, ALL FORMULATIONS 2008 128 complet ed HISTORICA L INFORMATI ON - FROM OTHER REGISTRY, [facility] INFLUENZA, SPLIT VIRUS, TRIVALENT, PRESERVATIVE 2007 141 complet ed HISTORICA L INFORMATI ON - FROM OTHER REGISTRY, [facility] INFLUENZA, SPLIT VIRUS, TRIVALENT, PRESERVATIVE 2006 141 complet ed HISTORICA L INFORMATI ON - FROM OTHER REGISTRY, [facility] INFLUENZA, SPLIT VIRUS, TRIVALENT, PRESERVATIVE 2005 141 complet ed HISTORICA L INFORMATI ON - FROM OTHER REGISTRY, [facility] DTP 2003 01 complet ed HISTORICA L INFORMATI ON - FROM OTHER REGISTRY, [facility] IPV 2003 10 complet ed HISTORICA L INFORMATI ON - FROM OTHER REGISTRY, [facility] MMR 2003 03 complet ed HISTORICA L INFORMATI ON - FROM OTHER REGISTRY, [facility] PNEUMOCOCCAL CONJUGATE PCV 7 2000 100 complet ed HISTORICA L INFORMATI ON - FROM OTHER REGISTRY, [facility] DTAP-HIB 1999 50 complet ed HISTORICA L INFORMATI ON - FROM OTHER REGISTRY, [facility] MMR 1999 03 complet ed HISTORICA L INFORMATI ON - FROM OTHER REGISTRY, [facility] PNEUMOCOCCAL CONJUGATE PCV 7 1999 100 complet ed HISTORICA L INFORMATI ON - FROM OTHER REGISTRY, [facility] VARICELLA 1999 21 complet ed HISTORICA L INFORMATI ON - FROM OTHER REGISTRY, [facility] HEP B, ADOLESCENT OR PEDIATRIC 1999 08 complet ed HISTORICA L INFORMATI ON - FROM OTHER REGISTRY, [facility] IPV 1999 10 complet ed HISTORICA L INFORMATI ON - FROM OTHER REGISTRY, [facility] DTAP 1998 20 complet ed HISTORICA L INFORMATI ON - FROM OTHER REGISTRY, [facility] HIB (HBOC) 1998 47 complet ed HISTORICA L INFORMATI ON - FROM OTHER REGISTRY, [facility] DTAP 1998 20 complet ed HISTORICA L INFORMATI ON - FROM OTHER REGISTRY, [facility] HIB (HBOC) 1998 47 complet ed HISTORICA L INFORMATI ON - FROM OTHER REGISTRY, [facility] IPV 1998 10 complet ed HISTORICA L INFORMATI ON - FROM OTHER REGISTRY, [facility] DTAP 1998 20 complet ed HISTORICA L INFORMATI ON - FROM OTHER REGISTRY, [facility] HEP B, ADOLESCENT OR PEDIATRIC 1998 08 complet ed HISTORICA L INFORMATI ON - FROM OTHER REGISTRY, [facility] HIB (HBOC) 1998 47 complet ed HISTORICA L INFORMATI ON - FROM OTHER REGISTRY, [facility] IPV 1998 10 complet ed HISTORICA L INFORMATI ON - FROM OTHER REGISTRY, [facility] ROTAVIRUS, PENTAVALENT 1998 116 complet ed HISTORICA L INFORMATI ON - FROM OTHER REGISTRY, [facility] HEP B, ADOLESCENT OR PEDIATRIC 1998 08 complet ed HISTORICA L INFORMATI ON - FROM OTHER REGISTRY, [facility] Results Combined list of recent chemistry, hematology and other laboratory results from Department of Defense and Veterans Affairs, ranging from 15 months to all on record, depending upon the facility. Order Name Results Value Reference Range Date Interpretation Specimen Comments Source CBC & DIFF LEUKOCYTES [#/VOLUME] IN BLOOD BY AUTOMATED COUNT 6.0 4.0 - 11.0 09/18 Specimen Type: BLOOD Comment: Automated Differentia l Performed Ordering Provider: BAUDILIO JEFFERS Report Released Date/Time: Sep 18, 2024 11:05 AM Reporting Lab: [facility] [address] Performing Lab: [facility] [address] [facility] CBC & DIFF ERYTHROCYTE S [#/VOLUME] IN BLOOD BY AUTOMATED COUNT 5.16 4.60 - 6.20 09/18 Specimen Type: BLOOD Comment: Automated Differentia l Performed Ordering Provider: BAUDILIO JEFFERS Report Released Date/Time: Sep 18, 2024 11:05 AM Reporting Lab: [facility] [address] Performing Lab: [facility] [address] [facility] CBC & DIFF HEMOGLOBIN [MASS/VOLUM E] IN BLOOD 15.2 g/dL 13.5 - 17.9 09/18 Specimen Type: BLOOD Comment: Automated Differentia l Performed Ordering Provider: BAUDILIO JEFFERS Report Released Date/Time: Sep 18, 2024 11:05 AM Reporting Lab: [facility] [address] Performing Lab: [facility] [address] [facility] CBC & DIFF HEMATOCRIT [VOLUME FRACTION] OF BLOOD BY AUTOMATED COUNT 44.5 41.0 - 54.0 09/18 Specimen Type: BLOOD Comment: Automated Differentia l Performed Ordering Provider: BAUDILIO JEFFERS Report Released Date/Time: Sep 18, 2024 11:05 AM Reporting Lab: [facility] [address] Performing Lab: [facility] [address] [facility] CBC & DIFF MCV [ENTITIC VOLUME] BY AUTOMATED COUNT 86.2 fL 80.0 - 100.0 09/18 Specimen Type: BLOOD Comment: Automated Differentia l Performed Ordering Provider: BAUDILIO JEFFERS Report Released Date/Time: Sep 18, 2024 11:05 AM Reporting Lab: [facility] [address] Performing Lab: [facility] [address] [facility] CBC & DIFF MCH [ENTITIC MASS] BY AUTOMATED COUNT 29.5 pg 27.0 - 33.0 09/18 Specimen Type: BLOOD Comment: Automated Differentia l Performed Ordering Provider: BAUDILIO JEFFERS Report Released Date/Time: Sep 18, 2024 11:05 AM Reporting Lab: [facility] [address] Performing Lab: [facility] [address] [facility] CBC & DIFF MCHC [MASS/VOLUM E] BY AUTOMATED COUNT 34.2 g/dL 32.0 - 37.5 09/18 Specimen Type: BLOOD Comment: Automated Differentia l Performed Ordering Provider: BAUDILIO JEFFERS Report Released Date/Time: Sep 18, 2024 11:05 AM Reporting Lab: [facility] [address] Performing Lab: [facility] [address] [facility] CBC & DIFF PLATELETS [#/VOLUME] IN BLOOD BY AUTOMATED COUNT 181 150 - 400 09/18 Specimen Type: BLOOD Comment: Automated Differentia l Performed Ordering Provider: BAUDILIO JEFFERS Report Released Date/Time: Sep 18, 2024 11:05 AM Reporting Lab: [facility] [address] Performing Lab: [facility] [address] [facility] CBC & DIFF PLATELET MEAN VOLUME [ENTITIC VOLUME] IN BLOOD BY AUTOMATED COUNT 10.0 fL 9.1 - 13.0 09/18 Specimen Type: BLOOD Comment: Automated Differentia l Performed Ordering Provider: BAUDILIO JEFFERS Report Released Date/Time: Sep 18, 2024 11:05 AM Reporting Lab: [facility] [address] Performing Lab: [facility] [address] [facility] CBC & DIFF NEUTROPHILS /100 LEUKOCYTES IN BLOOD BY MANUAL COUNT 56.8 40.0 - 80.0 09/18 Specimen Type: BLOOD Comment: Automated Differentia l Performed Ordering Provider: BAUDILIO JEFFERS Report Released Date/Time: Sep 18, 2024 11:05 AM Reporting Lab: [facility] [address] Performing Lab: [facility] [address] [facility] CBC & DIFF LYMPHOCYTES /100 LEUKOCYTES IN BLOOD BY MANUAL COUNT 32.5 15.0 - 45.0 09/18 Specimen Type: BLOOD Comment: Automated Differentia l Performed Ordering Provider: BAUDILIO JEFFERS Report Released Date/Time: Sep 18, 2024 11:05 AM Reporting Lab: [facility] [address] Performing Lab: [facility] [address] [facility] CBC & DIFF MONOCYTES/1 00 LEUKOCYTES IN BLOOD BY AUTOMATED COUNT 8.5 2.0 - 12.0 09/18 Specimen Type: BLOOD Comment: Automated Differentia l Performed Ordering Provider: BAUDILIO JEFFERS Report Released Date/Time: Sep 18, 2024 11:05 AM Reporting Lab: [facility] [address] Performing Lab: [facility] [address] [facility] CBC & DIFF EOSINOPHILS /100 LEUKOCYTES IN BLOOD BY AUTOMATED COUNT 1.3 0.0 - 6.0 09/18 Specimen Type: BLOOD Comment: Automated Differentia l Performed Ordering Provider: BAUDILIO JEFFERS Report Released Date/Time: Sep 18, 2024 11:05 AM Reporting Lab: [facility] [address] Performing Lab: [facility] [address] [facility] CBC & DIFF BASOPHILS/1 00 LEUKOCYTES IN BLOOD BY MANUAL COUNT 0.7 0.0 - 2.0 09/18 Specimen Type: BLOOD Comment: Automated Differentia l Performed Ordering Provider: BAUDILIO JEFFERS Report Released Date/Time: Sep 18, 2024 11:05 AM Reporting Lab: [facility] [address] Performing Lab: [facility] [address] [facility] CBC & DIFF ERYTHROCYTE DISTRIBUTIO N WIDTH [RATIO] BY AUTOMATED COUNT 11.8 11.5 - 14.5 09/18 Specimen Type: BLOOD Comment: Automated Differentia l Performed Ordering Provider: BAUDILIO JEFFERS Report Released Date/Time: Sep 18, 2024 11:05 AM Reporting Lab: [facility] [address] Performing Lab: [facility] [address] [facility] CBC & DIFF LYMPHOCYTES [#/VOLUME] IN BLOOD BY AUTOMATED COUNT 1.9 1.0 - 4.0 09/18 Specimen Type: BLOOD Comment: Automated Differentia l Performed Ordering Provider: BAUDILIO JEFFERS Report Released Date/Time: Sep 18, 2024 11:05 AM Reporting Lab: [facility] [address] Performing Lab: [facility] [address] [facility] CBC & DIFF MONOCYTES [#/VOLUME] IN BLOOD BY AUTOMATED COUNT 0.5 0.1 - 1.0 09/18 Specimen Type: BLOOD Comment: Automated Differentia l Performed Ordering Provider: BAUDILIO JEFFERS Report Released Date/Time: Sep 18, 2024 11:05 AM Reporting Lab: [facility] [address] Performing Lab: [facility] [address] [facility] CBC & DIFF NEUTROPHILS [#/VOLUME] IN BLOOD BY AUTOMATED COUNT 3.4 2.0 - 7.7 09/18 Specimen Type: BLOOD Comment: Automated Differentia l Performed Ordering Provider: BAUDILIO JEFFERS Report Released Date/Time: Sep 18, 2024 11:05 AM Reporting Lab: [facility] [address] Performing Lab: [facility] [address] [facility] CBC & DIFF EOSINOPHILS [#/VOLUME] IN BLOOD BY AUTOMATED COUNT 0.1 0.0 - 0.5 09/18 Specimen Type: BLOOD Comment: Automated Differentia l Performed Ordering Provider: BAUDILIO JEFFERS Report Released Date/Time: Sep 18, 2024 11:05 AM Reporting Lab: [facility] [address] Performing Lab: [facility] [address] [facility] CBC & DIFF BASOPHILS [#/VOLUME] IN BLOOD BY AUTOMATED COUNT 0.0 0.0 - 0.2 09/18 Specimen Type: BLOOD Comment: Automated Differentia l Performed Ordering Provider: BAUDILIO JEFFERS Report Released Date/Time: Sep 18, 2024 11:05 AM Reporting Lab: [facility] [address] Performing Lab: [facility] [address] [facility] CBC & DIFF IG(META,MYE LO,PRO) 0.2 09/18 Specimen Type: BLOOD Comment: Automated Differentia l Performed Ordering Provider: BAUDILIO JEFFERS Report Released Date/Time: Sep 18, 2024 11:05 AM Reporting Lab: [facility] [address] Performing Lab: [facility] [address] [facility] CBC & DIFF IMMATURE GRANULOCYTE S [PRESENCE] IN BLOOD BY AUTOMATED COUNT 0.0 0.0 - 0.1 09/18 Specimen Type: BLOOD Comment: Automated Differentia l Performed Ordering Provider: BAUDILIO JEFFERS Report Released Date/Time: Sep 18, 2024 11:05 AM Reporting Lab: [facility] [address] Performing Lab: [facility] [address] [facility] BASIC METABOLIC PANEL+MG CREATININE [MASS/VOLUM E] IN SERUM OR PLASMA 1.0 mg/dL 0.7 - 1.2 09/18 Specimen Type: PLASMA No comment entered. Ordering Provider: BAUDILIO JEFFERS Report Released Date/Time: Sep 18, 2024 11:05 AM Reporting Lab: [facility] [address] Performing Lab: [facility] [address] [facility] BASIC METABOLIC PANEL+MG UREA NITROGEN [MASS/VOLUM E] IN SERUM OR PLASMA 21 mg/dL 8 - 26 09/18 Specimen Type: PLASMA No comment entered. Ordering Provider: BAUDILIO JEFFERS Report Released Date/Time: Sep 18, 2024 11:05 AM Reporting Lab: [facility] [address] Performing Lab: [facility] [address] [facility] BASIC METABOLIC PANEL+MG GLUCOSE [MASS/VOLUM E] IN SERUM OR PLASMA 71 mg/dL 70 - 100 09/18 Specimen Type: PLASMA No comment entered. Ordering Provider: BAUDILIO JEFFERS Report Released Date/Time: Sep 18, 2024 11:05 AM Reporting Lab: [facility] [address] Performing Lab: [facility] [address] [facility] BASIC METABOLIC PANEL+MG SODIUM [MOLES/VOLU ME] IN SERUM OR PLASMA 138 mmol/L 136 - 145 09/18 Specimen Type: PLASMA No comment entered. Ordering Provider: BAUDILIO JEFFERS Report Released Date/Time: Sep 18, 2024 11:05 AM Reporting Lab: [facility] [address] Performing Lab: [facility] [address] [facility] [facility] BASIC METABOLIC PANEL+MG POTASSIUM [MOLES/VOLU ME] IN SERUM OR PLASMA 4.0 mmol/L 3.5 - 5.1 09/18 Specimen Type: PLASMA No comment entered. Ordering Provider: BAUDILIO JEFFERS Report Released Date/Time: Sep 18, 2024 11:05 AM Reporting Lab: [facility] [address] Performing Lab: [facility] [address] [place] [facility] BASIC METABOLIC PANEL+MG CHLORIDE [MOLES/VOLU ME] IN SERUM OR PLASMA 107 mmol/L 98 - 107 09/18 Specimen Type: PLASMA No comment entered. Ordering Provider: BAUDILIO JEFFERS Report Released Date/Time: Sep 18, 2024 11:05 AM Reporting Lab: [facility] [address] Performing Lab: [facility] [address] [place] [facility] BASIC METABOLIC PANEL+MG CARBON DIOXIDE, TOTAL [MOLES/VOLU ME] IN SERUM OR PLASMA 24 mmol/L 22 - 29 09/18 Specimen Type: PLASMA No comment entered. Ordering Provider: BAUDILIO JEFFERS Report Released Date/Time: Sep 18, 2024 11:05 AM Reporting Lab: [facility] [address] Performing Lab: [facility] [address] [place] [facility] BASIC METABOLIC PANEL+MG CALCIUM [MASS/VOLUM E] IN SERUM OR PLASMA 9.1 mg/dL 8.4 - 10.2 09/18 Specimen Type: PLASMA No comment entered. Ordering Provider: BAUDILIO JEFFERS Report Released Date/Time: Sep 18, 2024 11:05 AM Reporting Lab: [facility] [address] Performing Lab: [facility] [address] [place] [facility] BASIC METABOLIC PANEL+MG MAGNESIUM [MASS/VOLUM E] IN SERUM OR PLASMA 2.1 mg/dL 1.6 - 2.6 09/18 Specimen Type: PLASMA No comment entered. Ordering Provider: BAUDILIO JEFFERS Report Released Date/Time: Sep 18, 2024 11:05 AM Reporting Lab: [facility] [address] Performing Lab: [facility] [address] [place] [facility] BASIC METABOLIC PANEL+MG ANION GAP IN SERUM OR PLASMA 7 mmol/L 5 - 15 09/18 Specimen Type: PLASMA No comment entered. Ordering Provider: BAUDILIO JEFFERS Report Released Date/Time: Sep 18, 2024 11:05 AM Reporting Lab: [facility] [address] Performing Lab: [facility] [address] [place] [facility] BASIC METABOLIC PANEL+MG GLOMERULAR FILTRATION RATE/1.73 SQ M.PREDICTED [VOLUME RATE/AREA] IN SERUM, PLASMA OR BLOOD BY CREATININE- BASED FORMULA (CKD-EPI 2020) >90 60 09/18 Specimen Type: PLASMA No comment entered. Ordering Provider: BAUDILIO JEFFERS Report Released Date/Time: Sep 18, 2024 11:05 AM Reporting Lab: [facility] [address] Performing Lab: [facility] [address] [place] [facility] LIPID PANEL,NON -FASTING CHOLESTEROL [MASS/VOLUM E] IN SERUM OR PLASMA 144 mg/dL <199 - 199 09/18 Specimen Type: PLASMA No comment entered. Ordering Provider: BAUDILIO JEFFERS Report Released Date/Time: Sep 18, 2024 11:05 AM Reporting Lab: [facility] [address] Performing Lab: [facility] [address] [place] [facility] LIPID PANEL,NON -FASTING CHOLESTEROL IN HDL [MASS/VOLUM E] IN SERUM OR PLASMA 36 mg/dL 40 09/18 L Specimen Type: PLASMA No comment entered. Ordering Provider: BAUDILIO JEFFERS Report Released Date/Time: Sep 18, 2024 11:05 AM Reporting Lab: [facility] [address] Performing Lab: [facility] [address] [place] [facility] LIPID PANEL,NON -FASTING CHOLESTEROL IN LDL [MASS/VOLUM E] IN SERUM OR PLASMA BY CALCULATION 79 mg/dL <99 - 99 09/18 Specimen Type: PLASMA No comment entered. Ordering Provider: BAUDILIO JEFFERS Report Released Date/Time: Sep 18, 2024 11:05 AM Reporting Lab: [facility] [address] Performing Lab: [facility] [address] [place] [facility] LIPID PANEL,NON -FASTING CHOLESTEROL IN VLDL [MASS/VOLUM E] IN SERUM OR PLASMA BY CALCULATION 29 mg/dL <29 - 29 09/18 Specimen Type: PLASMA No comment entered. Ordering Provider: BAUDILIO JEFFERS Report Released Date/Time: Sep 18, 2024 11:05 AM Reporting Lab: [facility] [address] Performing Lab: [facility] [address] [facility] LIPID PANEL,NON -FASTING CHOLESTEROL NON HDL [MASS/VOLUM E] IN SERUM OR PLASMA 108 mg/dL <129 - 129 09/18 Specimen Type: PLASMA No comment entered. Ordering Provider: BAUDILIO JEFFERS Report Released Date/Time: Sep 18, 2024 11:05 AM Reporting Lab: [facility] [address] Performing Lab: [facility] [address] [facility] LIPID PANEL,NON -FASTING TRIGLYCERID E [MASS/VOLUM E] IN SERUM OR PLASMA 144 mg/dL <149 - 149 09/18 Specimen Type: PLASMA No comment entered. Ordering Provider: BAUDILIO JEFFERS Report Released Date/Time: Sep 18, 2024 11:05 AM Reporting Lab: [facility] [address] Performing Lab: [facility] [address] [facility] Vital Signs Combined list of inpatient and outpatient Vital Signs from Department of Defense and Veterans Affairs, ranging from 12 months to all on record, depending upon the facility. Vital Sign Value Date Comments Source Mean Arterial Pressure, Calc 94 mm[Hg] 04/26/2023 14:43:00 [facility] Systolic Blood Pressure 127 mm[Hg] 04/26/2023 14:43:00 [facility] [place] Diastolic Blood Pressure 78 mm[Hg] 04/26/2023 14:43:00 [facility] [place] Temperature Oral 36.7 Jackie 04/26/2023 14:43:00 [facility] [place] Peripheral Pulse Rate 81 bpm 04/26/2023 14:43:00 [facility] [place] SYSTOLIC BLOOD PRESSURE 115 09/18/2024 10:24:14 [facility] DIASTOLIC BLOOD PRESSURE 76 09/18/2024 10:24:14 [facility] PULSE OXIMETRY 96 09/18/2024 10:24:14 [facility] WEIGHT 200 09/18/2024 10:24:14 [facility] BMI 26 kg/m2 09/18/2024 10:24:14 [facility] PAIN 6 09/18/2024 10:24:14 [facility] HEIGHT 73 09/18/2024 10:24:14 [facility] TEMPERATURE 97.8 09/18/2024 10:24:14 [facility] PULSE 63 09/18/2024 10:24:14 [facility] RESPIRATION 16 09/18/2024 10:24:14 [facility] Encounters Combined list of: 1) Encounters from Department of Veterans Affairs facilities going backup to the last 18 months, not all VA inpatient encounters are included; 2) Encounters from the Department of [facility] facilities going backup to 280 months. Location Location Details Encounter Type Encounter Number Reason For Visit Attending Provider ADM Date DC Date Status Disposition Source [facility](Au diology [facility] 1523) OUTPATIENT [id number] JANET BEDOYA 07/11 Released w/o Limitations [facility]( Audiolo gy [facility] 1523) [facility](Op tometry [facility] 1523) OUTPATIENT [id number] LYDIA BACK 07/11 Released w/o Limitations [facility]( Optomet ry [facility] 1523) [facility] Male) OUTPATIENT [id number] Notes Entered by: Dennise SEGURA 12 Jul 2017 0826 ------- ------- ------- ------- -- P-4 Male Horace SARAI RODRIGUEZ 07/12 Released w/o Limitations [facility]( [facility] Male) [facility](Im munizatio n 1523) OUTPATIENT [id number] Notes Entered by: HERMAN HERNANDEZ 12 Jul 2017 1031 ------- ------- ------- ------- -- P4 Immuniz ations ANTONIO LIZARRAGA 07/12 Released w/o Limitations [facility]( Immuniz ation 1523) [facility](Im munizatio n 1523) OUTPATIENT [id number] Notes Entered by: TAQUERIA SLATER ON L 15 Aug 2017 1246 ------- ------- ------- ------- -- 5-2 Immuniz atmichael KAE WESTON 08/15 Released w/o Limitations [facility] [place] [address]) OUTPATIENT [id number] Notes Entered by: ROSALES WAYNE 04 Oct 2017 1209 ------- ------- ------- ------- -- Flu Immuniz ation ROBBY MAYA 10/04 Released w/o Limitations [facility] [place]( [place] [address] [facility]([place] [address]) OUTPATIENT [id number] Notes Entered by: FRANCISCO CLEVELAND 06 Mar 2018 1242 ------- ------- ------- ------- -- PFB 1 FRED GUILLEN 03/06 Released w/o Limitations [facility] [place]( Student Medic[place] [address]) [facility]([place] [address]) OUTPATIENT [id number] WENDY BERGER DURING/ AFTER PT FRED GUILLEN 04/26 Released with Work/Duty Limitations [facility]( [facility] [place] [address]) [facility] [place] [address]) OUTPATIENT [id number] F/U FRED Martínez 04/29 Released with Work/Duty Limitations [facility] [place]( [facility] [place] [place] [address]) [facility] [place]( munizatio n [facility] 237) OUTPATIENT [id number] Notes Entered by: WINSOME LOPEZ 22 May 2018 0759 ------- ------- ------- ------- -- WALK TWIN #3 QUANG KABA 05/22 Released w/o Limitations [facility] Mera [facility]( Immuniz ation [facility] 237) [facility](Pr imary Care [place]) OUTPATIENT [id number] 2 KEILA JAX PIERRE 02/11 Released w/o Limitations [facility]( [place]) [facility](Pr imary Care [place]) OUTPATIENT [id number] SHAQUILLE CRESPO 02/19 Released w/o Limitations [facility]( Primary Care [place]) [facility](GRANT STA HC Prog Diag Audio Srv) OUTPATIENT [id number] Notes Entered by: LES ISAAC 17 Jun 2019 1203 ------- ------- ------- ------- -- ANNUAL LES ISAAC 06/17 Released w/o Limitations [facility](N AVSTA HC Prog Diag Audio Srv) [facility](NAB HC Program) OUTPATIENT [id number] Notes Entered by: LES ISAAC 16 Jul 2020 0726 ------- ------- ------- ------- -- ANNUAL LES ISAAC 07/16 Released w/o Limitations [facility](N AB HC Program ) [place] [facility]( [facility] Conserv[facility] ion [place] ) OUTPATIENT [id number] Notes Entered by: PETRA LIEBERMAN 18 Aug 2021 0945 ------- ------- ------- ------- -- [facility] PETRA LIEBERMAN 08/18 Released w/o Limitations [place] [facility] [place] [facility] [place] [place]) [place]( [facility]) OUTPATIENT [id number] Notes Entered by: TEDDY RUSSELL 23 Aug 2021 1349 ------- ------- ------- ------- -- Walk in EKG (090.85 08.8719 ) HARRY MANUEL T 08/23 [place] w/o Limitations [facility] [place] [facility] [place] [place] OUTPATIENT [id number] BETO physica l/covid neg/090 .8508.8 726 GENET SWEENEY S 09/23 [place]ased w/o Limitations [place] [facility] [facility] ) OUTPATIENT [id number] Notes Entered by: Luz Maria GAMING 26 Sep 2021 0954 ------- ------- ------- ------- -- walk in dive physica l MYAVICKIE V 09/26 [place]ased w/o Limitations [place] [facility] [facility]) TELE CONSULT [id number] Notes Entered by: ZOE NATARAJAN 02 Jan 20226 ------- ------- ------- ------- -- medicat ion refill RILEY NICHOLSON 01/02 [place] [facility]) TELE CONSULT [id number] Notes Entered by: ZOE NATARAJAN 05 Feb 2022 1059 ------- ------- ------- ------- -- medicat ion refill RILEY NICHOLSON 02/05 [place]) [place] [facility]) TELE CONSULT [id number] Notes Entered by: ZOE NATARAJAN 26 Feb 2022 1009 ------- ------- ------- ------- -- Dermato logy RILEY Salcedo 02/26 [place]) [place] [facility]) TELE CONSULT [id number] Notes Entered by: ZOE NATARAJAN 02 Apr 2022 1629 ------- ------- ------- ------- -- physica l therapy consult RILEY NICHOLSON 04/02 [place]) [place] [facility] OUTPATIENT [id number] Mollusc um contagi osum [id number] WILLIAM RODRIGUEZ I 04/09 [place]ased w/o Limitations [place] [facility] [place]) TELE CONSULT [id number] Notes Entered by: CIRO RODRIGUEZ I 13 Apr 2022 0745 ------- ------- ------- ------- -- Biopsy Results WILLIAM RODRIGUEZ I 04/12 [place] [place]) OUTPATIENT [id number] Pain in left knee FUNMI JOSUE 04/20 [place]ased w/o Limitations [place] [facility] OUTPATIENT [id number] Theater Provider 12/31 Released w/o Limitations [facility] OUTPATIENT [id number] Theater Provider 01/06 Released w/o Limitations Theater Facilit y [place]( [facility] ) OUTPATIENT [id number] Notes Entered by: PETRA LIEBERMAN 07 Feb 2023 1047 ------- ------- ------- ------- -- AUDIOGR AM FOR SEPARAT ION PE PETRA LIEBERMAN 02/07 [place]ased w/o Limitations [place] [facility] [place] Theater [facility] OUTPATIENT [id number] Theater Provider 02/08 Released w/o Limitations Theater Facilit y [place] [facility]) TELE CONSULT [id number] Notes Entered by: ZOE NATARAJAN 12 Feb 2023 0738 ------- ------- ------- ------- -- PT Consult RILEY NICHOLSON 02/11 [place] [facility]) Theater Facility OUTPATIENT [id number] Theater Provider 02/26 Sick at Home/Quarter s Theater Facilit y [place]( [facility]) OUTPATIENT [id number] Sciatic a, left lejt819 .8508.8 726 FUNMI JOSUE 03/12 [place]ased w/o Limitations [place] [facility] ) [place]) OUTPATIENT [id number] 2 it band VERONICA JOSEPH Roque 03/13 Released w/o Limitations [place] [facility] ) [place]) OUTPATIENT [id number] it band PATTI MOONEY Roque 03/26 Released w/o Limitations [place] [facility] Outpatient Encounter [id number] Diagnos is: ICD-10- CM Z02.89 Encount er for other adminis trative examina tions Mikal HENNESSY 07/03 [facility] Outpatient Encounter [id number] 09/18 [place] [facility] [place] [facility] Outpatient Encounter [id number] 09/18 [place] [facility] OFFICE O/P EST HI 40 MIN [id number] Diagnos is: ICD-10- CM M25.552 Pain in left hip GINO JEFFERS A 09/18 [place] [facility] [place] [facility] HC PRO PHONE CALL 5-10 MIN [id number] Diagnos is: ICD-10- CM Z71.89 Other specifi ed counselor camp ing SIERRA DUEÑAS EY 09/24 [place] [facility] [place] [facility] Outpatient Encounter [id number] SIERRA DUEÑAS EY 09/24 [place] [facility] [place] [facility] HC PRO PHONE CALL 5-10 MIN [id number] Diagnos is: ICD-10- CM Z71.89 Other specifi ed counselor camp ing SIERRA DUEÑAS EY 09/25 [facility] [place] [facility] Outpatient Encounter [id number] GINO JEFFERS A 09/25 [facility] OFF/OP CONSLTJ NEW/EST HI 55 [id number] Diagnos is: ICD-10- CM M25.552 Pain in left hip AGUILAR,MIGUEL ANGEL CA S 11/20 [facility] [place] [facility] Outpatient Encounter [id number] ANNMARIE QUEEN 12/02 [facility] [place] [facility] Outpatient Encounter [id number] 12/10 [facility] [place] [facility] OFF[facility] O/P EST MOD 30 MIN [id number] Diagnos is: ICD-10- CM M25.552 Pain in left hip AGUILAR,MIGUEL ANGEL CA S 01/06 [facility] [place] [facility] Outpatient Encounter [id number] 01/27 [facility] [place] [facility] Outpatient Encounter [id number] 02/24 [facility] Procedures Combined list of: 1) Procedures from Department of Veterans Affairs facilities going back up to thelast 18 months, not all VA non-surgical procedures are included; 2) All procedures from the Department of Defense facilities. Procedure Procedure Type Code Date Perfomer Comments Soursusu e No data available for this section [facility] ADMINISTRATION OF PATIENT-FOCUSED HEALTH RISK ASSESSMENT INSTRUMENT (EG, HEALTH HAZARD APPRAISAL) WITH SCORING AND DOCUMENTATION, PER STANDARDIZED INSTRUMENT [facility] INCISION AND REMOVAL OF FOREIGN BODY, SUBCUTANEOUS TISSUES; SIMPLE [facility] AUDIOMETRIC TESTING OF GROUPS [facility] AUDIOMETRIC TESTING OF GROUPS [facility] HEPATITIS A AND HEPATITIS B VACCINE (HEPA-HEPB), ADULT DOSAGE, FOR INTRAMUSCULAR USE [facility] BEHAVIORAL HEALTH PREVENTION EDUCATION SERVICE (DELIVERY OF SERVICES WITH TARGET POPULATION TO AFFECT KNOWLEDGE, ATTITUDE AND/OR BEHAVIOR) [facility] ALCOHOL AND/OR DRUG SERVICES; INTENSIVE OUTPATIENT (TX PRGM OPERATES >= 3 HRS/DAY & >= 3 DAYS/WK & IS BASED ON INDIVID TX PLAN),INCL ASSESS,BOAT WRAPPER;CR KISHORE INTERVENTN,& ACT THERAPIES/EDUC [facility] ALCOHOL AND/OR DRUG SERVICES; INTENSIVE OUTPATIENT (TX PRGM OPERATES >= 3 HRS/DAY & >= 3 DAYS/WK & IS BASED ON INDIVID TX PLAN),INCL ASSESS,BOAT WRAPPER;CR KISHORE INTERVENTN,& ACT THERAPIES/EDUC [facility] BEHAVIORAL HEALTH SCREENING TO DETERMINE ELIGIBILITY FOR ADMISSION TO TREATMENT PROGRAM [facility] ALCOHOL (ETHANOL); BREATH [facility] INFLUENZA VIRUS VACCINE, QUADRIVALENT (IIV4), SPLIT VIRUS, PRESERVATIVE FREE, 0.5 ML DOSAGE, FOR INTRAMUSCULAR USE [facility] IMMUNIZATION ADMINISTRATION (INCLUDES PERCUTANEOUS, INTRADERMAL, SUBCUTANEOUS, OR INTRAMUSCULAR INJECTIONS); EACH ADDITIONAL VACCINE (SINGLE OR COMBINATION VACCINE/TOXOID) [facility] IMMUNIZATION ADMINISTRATION (INCLUDES PERCUTANEOUS, INTRADERMAL, SUBCUTANEOUS, OR INTRAMUSCULAR INJECTIONS); EACH ADDITIONAL VACCINE (SINGLE OR COMBINATION VACCINE/TOXOID) [facility] PATIENT EDUCATION, NOT OTHERWISE CLASSIFIED, NON-PHYSICIAN PROVIDER, GROUP, PER SESSION [facility] VIS FUNCT SCREEN,AUTOMAT/SE IL-AUTOMAT BILAT QUANT DETERM VISUAL ACUITY,OCULAR ALIGN,COLOR VISION,PSEUDOISOC HROMAT PLATES,& FIELD VIS ([employer] ALL/SOME SCRN DETERM FOR CONTRAST SENSITIV,VIS UND GLARE) [facility] AUDIOMETRIC TESTING OF GROUPS [facility] THERAPEUTIC PROCEDURE, 1 OR MORE AREAS, EACH 15 MINUTES; THERAPEUTIC EXERCISES TO DEVELOP STRENGTH AND ENDURANCE, RANGE OF MOTION AND FLEXIBILITY [facility] THERAPEUTIC PROCEDURE, 1 OR MORE AREAS, EACH 15 MINUTES; THERAPEUTIC EXERCISES TO DEVELOP STRENGTH AND ENDURANCE, RANGE OF MOTION AND FLEXIBILITY [facility] THERAPEUTIC PROCEDURE, 1 OR MORE AREAS, EACH 15 MINUTES; THERAPEUTIC EXERCISES TO DEVELOP STRENGTH AND ENDURANCE, RANGE OF MOTION AND FLEXIBILITY [facility] PURE TONE AUDIOMETRY (THRESHOLD), AUTOMATED; AIR ONLY [facility] THERAPEUTIC PROCEDURE, 1 OR MORE AREAS, EACH 15 MINUTES; THERAPEUTIC EXERCISES TO DEVELOP STRENGTH AND ENDURANCE, RANGE OF MOTION AND FLEXIBILITY [facility] PSYCHIATRIC DIAGNOSTIC EVALUATION [facility] PUNCH BIOPSY OF SKIN (INCLUDING SIMPLE CLOSURE, WHEN PERFORMED); SINGLE LESION [facility] VIS FUNCT SCREEN,AUTOMAT/SE IL-AUTOMAT BILAT QUANT DETERM VISUAL ACUITY,OCULAR ALIGN,COLOR VISION,PSEUDOISOC HROMAT PLATES,& FIELD VIS ([employer] ALL/SOME SCRN DETERM FOR CONTRAST SENSITIV,VIS UND GLARE) [facility] ELECTROCARDIOGRAM , ROUTINE ECG WITH AT LEAST 12 LEADS; INTERPRETATION AND REPORT ONLY [facility] PATIENT EDUCATION, NOT OTHERWISE CLASSIFIED, NON-PHYSICIAN PROVIDER, INDIVIDUAL, PER SESSION [facility] Audiometry Group Testing Audiometry Group Testing [id number] LES ISAAC [facility] Hepatitis A And Hepatitis B (Intramuscular Use) Adult Dosage Hepatitis A And Hepatitis B (Intramuscular Use) Adult Dosage [id number] QUANG KABA [facility] Immunization Administration One Vaccine Immunization Administration One Vaccine 14343 018 QUANG KABA [facility] Behavioral health prevention education service (delivery of services with target population to affect knowledge, attitude and/or behavior) 018 MATA PULIDO [facility] Alcohol and/or drug services; intensive outpatient (treatment program that operates at least 3 hours/day and at least 3 days/week and is based on an individualized treatment plan), including a e ment, counseling; crisis intervention, and activity therapies or education 018 MATA PULIDO [facility] Breathalyzer For Blood Alcohol Content Breathalyzer For Blood Alcohol Content [id number] 018 MATA PULIDO [facility] Behavioral health prevention education service (delivery of services with target population to affect knowledge, attitude and/or behavior) 018 [facility] Alcohol and/or drug services; intensive outpatient (treatment program that operates at least 3 hours/day and at least 3 days/week and is based on an individualized treatment plan), including a e ment, counseling; crisis intervention, and activity therapies or education 018 [facility] Alcohol and/or drug services; case management 018 JOSHUA PEÑA V [facility] Breathalyzer For Blood Alcohol Content Breathalyzer For Blood Alcohol Content 49084 018 JOSHUA PEÑA V [facility] Breathalyzer For Blood Alcohol Content Breathalyzer For Blood Alcohol Content 33674 018 KIKI KARIMI [facility] Behavioral health screening to determine eligibility for admi ion to treatment program 018 MELISSA GRIFFIN [facility] Alcohol and/or drug a e ment 018 MELISSA GRIFFIN [facility] Immunization Administration One Vaccine Immunization Administration One Vaccine [address] [facility] Immunization Administration One Vaccine Immunization Administration One Vaccine 61686 017 TONNY FLETCHER [facility] Immunization Administration Each Additional Vaccine Immunization Administration Each Additional Vaccine 04633 017 TONNY FLETCHER [facility] Typhoid Vaccine Vi Capsular Polysaccharide, For Intramus Use Typhoid Vaccine Vi Capsular Polysaccharide, For Intramus Use 20898 017 TONNY FLETCHER Typhoid, ViCPs; Series #: 1; .5 mL; IM; Left Arm; Mfg: [employer]; Lot: [id number]; VIS given (Bree: 04/02/12). [facility] Hepatitis A And Hepatitis B (Intramuscular Use) Adult Dosage Hepatitis A And Hepatitis B (Intramuscular Use) Adult Dosage 55397 017 TONNY FLETCHER Hep A-Hep B; Series #: 2; 1.0 mL; IM; Left Arm; Mfg: [employer]; Lot: [id number]; VIS given (Bree: 05/24/16; 05/24/16). [facility] Vaccines Viral Polio, Inactivated (Salk) Vaccines Viral Polio, Inactivated (Salk) 46961 017 CHERRYMimaJACOB TONNY HOYOS IPV; Series #: 1; .5 mL; SC; Right Arm; Mfg: Sanofi Pasteur; Lot: [id number]; VIS given (Bree: 05/24/16; 09/09/15 - Multiple). [facility] Vaccines Viral Varicella (Active) Vaccines Viral Varicella (Active) 19961 017 CHERRYMimaCARLCaleb TONNY HOYOS Varicella; Series #: 2; .5 mL; SC; Left Arm; Mfg: Merck; Lot: [id number]; VIS given (Bree: 01/16/08). Malia Hendrix Supervised Injection Intramuscular Antibiotic Supervised Injection Intramuscular Antibiotic 88965 BARRERA STRICKLAND [facility] Injection, penicillin g benzathine, 100,000 units BARRERA HERNANDEZ [facility] Immunization Admin Intranasal / Oral Each Additional Vaccine Immunization Admin Intranasal / Oral Each Additional Vaccine 44913 017 BARRERA HERNANDEZ Vaccines Adenovirus Type 4 Live, For Oral Use Vaccines Adenovirus Type 4 Live, For Oral Use 09419 017 BARRERA HERNANDEZ Vaccines Adenovirus Type 7 Live, For Oral Use Vaccines Adenovirus Type 7 Live, For Oral Use 20526 BARRERA HERNANDEZ [facility] Vaccines Viral Varicella (Active) Vaccines Viral Varicella (Active) 64510 017 BARRERA HERNANDEZ Varicella; Series #: 1; .5 mL; SC; Left Arm; Mfg: Merck; Lot: [id number]; VIS given (Bree: 01/16/08). [facility] Hepatitis A And Hepatitis B (Intramuscular Use) Adult Dosage Hepatitis A And Hepatitis B (Intramuscular Use) Adult Dosage 92810 017 BARRERA HERNANDEZ Hep A-Hep B; Series #: 1; 1.0 mL; IM; Left Arm; Mfg: Glycobia; Lot: [id number]; VIS given (Bree: 05/24/16; 05/24/16). [facility] Meningococcal Polysacch Diphtheria Toxoid Conjugate Vaccine 017 BARRERA HERNANDEZ Meningococcal MCV4P; Series #: 1; .5 mL; IM; Left Arm; Mfg: Sanofi Pasteur; Lot: [id number]; VIS given (Bree: 02/03/2016). [facility] Tdap Vaccine Tdap Vaccine 38512 017 BARRERA HERNANDEZ Tdap; Series #: 1; .5 mL; IM; Right Arm; Mfg: Other; Lot: [id number]; VIS given (Bree: 12/29/14). [facility] Immunization Administration One Vaccine Immunization Administration One Vaccine 80607 017 BARRERA HERNANDEZ [facility] Immunization Administration Each Additional Vaccine Immunization Administration Each Additional Vaccine 07768 017 BARRERA HERNANDEZ [facility] Patient education, not otherwise cla ified, non-physician provider, group, per se ion 017 NAYELI SEGURA [facility] Visual Function Screening Visual Function Screening 03766 017 LYDIA BACK [facility] Audiometry Group Testing Audiometry Group Testing 85010 017 JANET BEDOYA [facility] Threshold Audiogram (Pure Tone) Threshold Audiogram (Pure Tone) 09342 017 JANET BEDOYA [facility] Audiometry Group Testing Audiometry Group Testing 25583 LES ISAAC [facility] Threshold Audiogram (Pure Tone) Automated Threshold Audiogram (Pure Tone) Automated 0208T PETRA LIEBERMAN [facility] Patient education, not otherwise cla ified, non-physician provider, individual, per se ion PETRA LIEBERMAN [facility] ECG Interpretation And Report Only ECG Interpretation And Report Only 93756 MANUEL MCDONALD Vent Rate: 54 BPM IN Interval: 194 ms QRS Duration: 100 ms QT/QTc: 428/405 ms P-R-T Axes: 54 102 66 [facility] Screening Test Of Visual Acuity, Quantitative, Bilateral Screening Test Of Visual Acuity, Quantitative, Bilateral 67503 BI, DZUY V [facility] Visual Function Screening Visual Function Screening 50809 BI, DZUY V [facility] Physical Therapy: ___ Se ion Segments, 15 Minutes Each Physical Therapy: ___ Session Segments, 15 Minutes Each 02557 FUNMI JOSUE [facility] Psychiatric Evaluation Psychiatric Evaluation 17083 JAX REY [facility] Social History Combined list of available smoking, tobacco, and other social history from Department of Defense and Veterans Affairs facilities. Social History Type Response Date Comment Sour e Tobacco smoking status [facility] NEVER USED 09/18/2024 [facility] Sex Representation Male (finding) 11/08/2020 Un known Organization Tobacco Never-cigarette user Cigarette use:. Never-other tobacco user (not cigarettes) Other Tobacco use:. [facility] Sexual Orientation Amb[facility] Pharmacy Gender identity Ambulator y Pharm[facility] This section is an empty social history section. DoD Assessment and Plan Combined list of future care activities from Department of Defense and Veterans Affairs facilities (e.g., assessment and plan notes, appointments, orders, and referrals). Additional future care activities may be listed in the Plan of Care section. Result Assessment and Plan Date Source Assessment and Plan Extracted from:Title : Office Clinic Note Author: MEGAN HADDAD APA-C Date: 04/26/23 1. P oor sleep Pt with trouble falling asleep and waking up frequently at night. Low risk for RENATE with SOTPBANG of 2 Appears notably sleepy and yawning frequently during exam/conversation Recommend behavioral intervention at this time. May benefit from sleep study in the future if symptoms persist. Follow up if symptoms persist. Healthy sleep habits were reviewed with the patient and include the following: - Try to got to bed and wake up at the same time daily. - No more than 2 caffeinated beverages per day and prior to lunch. - No electronics or TV while in the bedroom, and minimize 1-2hrs prior to planned sleep time - keep bedroom at comfortable temperature to sleep with a blanket on top - Recc'd white noise machine/ryley for background noise - minimize etoh use, especially prior to sleep - no tobacco or nicotine use - cardiovascular exercise daily, but not within 3-4hrs prior to planned sleep. refered to www.sleepfoundation.org for more information on sleep habits and conditions. Standby was offered to the patient. Medications reconciled and list offered to the patient. Plan discussed; there were no obvious barriers to learning and the patient verbalized understanding. P t agrees to plan of care and has no questions. LT Megan Haddad PA-C USN, MSC MACHO Licea This note was dictated using voice recognition software (PayPay). Attempts have been made to review and corrected document for accuracy. However, there may be unintentional?grammatical and punctuation errors. 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 They a re not in a restricted duty status at this time. 03/14/[address] [place] [address] Functional Status Combined list of recent functional and cognitive assessments recorded at Department of Defense and Veterans Affairs (VA).VA Functional Loíza Measurement (FIM) Scale: 1 = Total Assistance (Subject = 0% +), 2 = Maximal Assistance (Subject = 25% +), 3 = Moderate Assistance (Subject = 50% +), 4 = Minimal Assistance (Subject = 75% +), 5 = Supervision, 6 = Modified Loíza (Device), 7 = Complete Loíza (Timely, Safely). Assessment Date/Time Source Assessment Type Assessment Skill Assessment Score Assessment Details No data available for this section
--- OUTSIDE RECORDS SUMMARY | 2025-03-14 13:40 | XMS_ITS | Encounter Summary ---
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 Gender Identity Not on file Sexual Orientation Not on file documented as of this encounter Plan of Treatment Upcoming Encounters Date Type Department Care Team (Late st Contact Info) Description 03/16/2025 10:40 AM CDT Therapy Visit [facility] [address] [phone] Emma Simmons APRN COATER OPERATOR INSULATION BOARD [address] [place], [place] [id number] Christie Powell, PT [facility] [place] MACK JACOB [address] [place] [address] [place] [id number] 03/23/2025 10:40 AM CDT Therapy Visit [facility] [address] [facility] [address] [place] [phone] Emma Simmons APRN COATER OPERATOR INSULATION BOARD [address] [place], [place] [phone] Chirstie Powell, PT YANELI MACK JACOB [address] [place] [address] [place] [id number] 03/23/2025 4:10 PM CDT Office Visit [facility] [place] [address] [facility] 3rd [place] [address] Edwar Person MD [address] [facility] [address] [place], [place] [phone] documented as of this encounter Visit Diagnoses Not on filedocumented in this encounter Care Teams Radiation Oncology Therapist Relationship Specialty Start Date End Date No Ref-Primary, Physician PCP - General 02/24/25 documented as of this encounter
--- OUTSIDE RECORDS SUMMARY | 2025-03-14 13:40 | XMS_ITS | Encounter Summary ---
Author Organization [facility] Address [address] [place] [address] Care Team Providers Care Pick Pack Worker Name Role Phone No Ref-Primary, Physician Primary Care Provider Reason for Referral * Rehab Therapy Physical Therapy (Priority: 1-2 Weeks) - Authorized Specialty Diagnoses / Procedures Referred By Jose Luis simpson Referred To Contact Physical Therapy Diagnoses Lateral pain of left hip Muscle spasm Piriformis muscle pain Numbness Pain of left lower extremity [address] [phone] Phone: tel: Referral ID Status Reason Start Date Expiration Date V isits Requested Visits Authorized [id number] Authorized 03/16/2025 08/07/2025 15 13 Question Answer Course of Action: Evaluation and Treatment Specialty Services: Per Associated Diagnosis Patient Scheduling Instructions: [facility] will call you to coordinate your care as prescribed by your provider. If you don't hear from a premium representative within 2 business days, please call . Comments Please be aware that coverage of these services is subject to the terms and limitations of your health insurance plan. Call member services at your health plan with any benefit or coverage questions. [facility] will call you to coordinate your care as prescribed by your provider. If you don't hear from a premium representative within 2 business days, please call . Reason for Visit * Reason Comments New Patient New Med Spine Leonidas * Consultation (Routine) - Authorized Specialty Diagnoses / Procedures Referred By Contbrie t Referred To Contact Diagnoses Lateral pain of left hip Thigh pain Joint pain [place] [address] Phone: tel: fax: Referral ID Status Reason Start Date Expiration Date V isits Requested Visits Authorized [id number] Authorized 01/08/2025 07/07/2025 999 999 Encounter Details Date Type Department Care Team (Latest Contact Info) Description 02/24/2025 8:20 AM CDT Office Visit [facility] [address] [place] [phone] Emma Simmons APRN ESTIMATION MANAGER [address] [place] [address] [phone] Piriformis muscle pain (Primary Dx); Lateral pain [...] on file 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 As discussed, we made the following updates to your plan of care: An order for physical therapy was added today. Physical therapy schedulers should call you in the next few days to schedule an appointment. You may also call [phone] to arrange an appointment atany of the [facility] outpatient physical therapy locations. It will be [...] seeing 8 providers thus far, between [facility] and [facility]. Workup thus far has included X [...] rounds of physical therapy both with [facility] and through [facility] ([facility]) without any significant improvement. He states that [...] both Brace: none Physical Therapy: +PT in [place] and in [facility] (for [facility]) - none has significantly helped - [...] available notes and clinic visits reviewed) 1. [place] [facility] - record not available 2. [facility] 3. 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 Performs [...] Sacroiliac Joint Compression Test negative bilaterally. Sacral Thrust/[place]'s Test negative bilaterally. --HIPS: Full range of [...] Description 03/16/2025 10:40 AM CDT Therapy Visit [address] [phone] Emma Simmons APRN [facility] [place] [address] Christie Powell, PT [address] [place] [id number] 03/23/2025 10:40 AM CDT Therapy Visit [address] [place] [phone] Emma Simmons APRN [facility] [place] [address] Christie Powell, PT [address] [place] [id number] 03/23/2025 4:10 PM CDT Office Visit [facility] [place] [address] [place] [address] [address] [place] [phone] Edwar Person MD [address] [place] [address] [address] [place] [address] Scheduled Referrals Name Type Priority Associated Diagnoses Orde r Schedule Physical Therapy Jacquard Loom Card Changer Referral Referral Priority: 1-2 Weeks Lateral pain [...] extremity documented in this encounter Care Teams Pick Pack Worker Relationship Specialty Start Date End Date No Ref-Primary, Physician PCP - General 02/24/25 documented as of this encounter
--- OUTSIDE RECORDS SUMMARY | 2025-03-14 13:40 | XMS_ITS | Encounter Summary ---
Author Name [facility] [facility] Address [address] [place] [address] Care Team Providers Care Tobacco Hanger Name Role Phone BAUDILIO JEFFERS Primary Care Provider Unavailabl e Insurance Providers: All historical and current Section Date Range: From patient's date of to the date document was created. This section includes the names of all active insurance providers for the patient. Insurance Provider Type of Coverage Plan Name Start of Policy Coverage End of Policy Coverage Group Number Member ID Insurance Provider's Telephone Number Policy Banerjee's Name Patient's Relationship to Policy Banerjee [place] PREFERRED PROVIDER ORGANIZAT ION (PPO) AXCEL IS TECHN OLOGI ES Nov 05, 2003 [id number] HRUBY,CON NOR PATIENT [place] ([id number]) PRESCRIPT ION AXCEL IS TECHN OLOGI ES Nov 05, 2003 [id number] HRUBY,CON NOR PATIENT [facility] VISION VISION SPECT ERA VISIO N PLAN May 05, 2020 [id number] HRUBY,CON NOR PATIENT Selected Encounter This section includes the information on record at [place] for the Encounter. Date/Time Encounter Type Encounter Description Reason Provider Source Nov 20, 2024 03:00 PM OFF/OP CONSLTJ NEW/EST HI 55 ORTHO/JOINT SURG ICD-10-CM M25.552 Pain in left hip CORDERO,GREG S IHE Encounter Template Text not used by [place] Assessments - Encounter Diagnoses This section includes the primary and secondary diagnoses documented for the Encounter. Date/Time Primary/Secondary Diagnosis Diagnosis Name Provider Source Nov 20, 2024 04:06 PM PRIMARY Pain in left hip CORDERO,GREG S [facility] Plan of Treatment: Future Appointments (+ 6 months) and Future Tests (+/- 45 days) The Plan of Treatment section includes future care activities for the patient from [facility] [place] [facility] This section includes future appointments and future orders which are active, pending or scheduled. Future Appointments This section includes appointments that were scheduled to occur 6 months from the date of the Encounter, up to a maximum of 20 appointments. The data comes from all [facility] Appointment Date/Time Appointment Type Appointme nt Facility Name Dec 10, 2024 02:45 PM AMBULATORY - NONE [facility] Jan 06, 2025 10:30 AM AMBULATORY - SURGERY [facility] Feb 24, 2025 08:20 AM AMBULATORY - NONE [facility] Social History: Smoking Status (Most current) and Tobacco Use (All prior to encounter date) This section includes the most current, and the historical, smoking and tobacco- related health factors from the [place] facility where the Encounter took place. Current Smoking Status This section includes the most current smoking, or tobacco-related health factor, from the [place] facility where the Encounter took place. Date/Time Current Smoking Status Comment Facil ity Sep 18, 2024 08:27 AM VA-TOBACCO NEVER USED [facility] Radiology Reports: +/- 30 days of the encounter Radiology Reports For cases when an order for radiology services may have been completed prior to the date of the Encounter, the report list includes the Radiology Reports that were completed up to 30 days before dateof the Encounter. For cases when an order for radiology services may have been completed after the date of the Encounter, the report list also includes the Radiology Reports that were completed up to30 days after date of the Encounter. The data comes from all [facility]. Date/Time Radiology Report Provider Source Dec 10, 2024 02:26 PM ORTHO INJECTION-HI P (P): LEDACalebMARGE PAULINA [id number] -2000 M Exm Date: DEC 10, 2024@14:26 Req Phys: GREG CORDERO Loc: [facility] CORDERO (Req'g L Img Loc: MAIN X-RAY Service: [place] [address] (Case [id number] COMPLETE) INJECTION OF HIP (RAD Detailed) CPT:75627 Proc Modifiers : LEFT Reason for Study: Left hip pain - lidocaine only injection (Case [id number] COMPLETE) FLUORO GUIDE FOR NEEDLE PLACEMENT(RAD Detailed) CPT:08646 Proc Modifiers : LEFT Clinical History: Diagnostic Injection Specific Joint location: Left hip joint IS NOT under investigation for COVID-19 or is COVID-19 negative Left hip pain - lidocaine only injection Contact number for responsible provider who can be reached for any questions or notifications of critical findings: Greg Gil n/a LAST CREATININE 1.0 (09/18/24) Report Status: Verified Date Reported: DEC 10, 2024 Date Verified: DEC 10, 2024 Application Security Specialist E-Sig:/ES/LESLIE BUTCHER DO Report: EXAMINATION: INJECTION OF HIP, FLUORO GUIDE FOR NEEDLE PLACEMENT S&I Reason for Study: Left hip pain - lidocaine only injection Diagnostic Injection Specific Joint location: Left hip joint [place] IS NOT under investigation for COVID-19 or is COVID-19 negative Left hip pain - lidocaine only injection Contact number for responsible provider who can be reached for any questions or notifications of critical findings: Gregcarmella Cordero n/a LAST CREATININE 1.0 COMPARISON: Radiograph 11/20/2024 FINDINGS/TECHNIQUE: An attempt was first made to contact the ordering provider at the number provided to confirm lidocaine as the desired intra-articular agent (versus longer acting ropivacaine) as the patient shared he was instructed to attempt provocative activities throughout the rest of the afternoon and evening. Preprocedure imaging was reviewed. The procedure, including the risks and benefits, was explained to the patient and informed consent was obtained and documented. Time-out performed according to [place] protocol with the other medical personnel present. This included identification of the patient with 2 identifiers and confirmation of the procedure and laterality. The skin overlying the target site was marked, sterilely prepped, and draped in the usual fashion. Local anesthesia obtained with 4 mL 1% Xylocaine. Using image guidance, a spinal needle was advanced into the left hip and intra-capsular position of the needle tip confirmed with a small volume of iodinated contrast. 5 mL 1 percent lidocaine was then administered into the left hip joint as instructed. joint. The needle was removed and the puncture site covered with a sterile dressing. The patient tolerated the procedure well and there was no evident complication. Dose area product: 1.63microGray meter squared Skin dose: 0.1 mGy Fluoroscopy time: 0 minutes Impression: Successful fluoroscopic guided, intra-articular lidocaine administration, left hip. Preprocedure pain score 3. No pain after injection. The patient specifically requested assistance with a provocative maneuver which he reports triggers his pain the greatest. The described motion corresponds to the MARCIANO maneuver which was performed. He reported no pain with this motion. Report Sign Date/Time: 12/10/2024 4:30 PM Primary Interpreting Staff: LESLIE BUCTHER DO, RADIOLOGIST (Application Security Specialist) /LESLIE HOLLINGSWORTH [facility] Nov 20, 2024 02:35 PM HIP LEFT 2 VIEWS W /PELVIS: NETTEMARGE Ellis PAULINA [id number] -2000 M Exm Date: NOV 20, 2024@14:35 Req Phys: BAUDILIO JEFFERS Loc: [facility] PA[facility]EEWEE 4F (Req'g Loc) Img Loc: MAIN X-RAY Service: [place] [address] (Case [id number] COMPLETE) HIP LEFT 2 VIEWS W/PELVIS (RAD Detailed) CPT:42772 Proc Modifiers : LEFT Reason for Study: left hip pain Clinical History: [place] IS NOT under investigation for COVID-19 or is COVID-19 negative left hip pain Responsible provider name and phone number to notify for critical findings if other than user placing the order and pager listed below: User placing orders pager: [phone] LAST CREATININE 1.0 (09/18/24) Report Status: Verified Date Reported: NOV 22, 2024 Date Verified: NOV 22, 2024 Application Security Specialist E-Sig: Report: HIP LEFT 2 VIEWS W/PELVIS HISTORY: left hip pain COMPARISON: MRI of the pelvis and left hip dated 01/08/2024 TECHNIQUE: AP view of the pelvis, and AP and frog-leg views of the left hip, submitted to the [place] National Teleradiology Program (NTP) for interpretation. FINDINGS: No displaced fracture identified. Preserved hip joint space. Normal sacroiliac joints and pubic symphysis. Impression: Normal radiographic evaluation of the hip. READING PHYSICIAN: Travis Woo MD -[id number] 11/22/2024 9:47 PST [facility] National Teleradiology Program [phone] (For Medical Practitioner Use Only) Attention Patients / Veterans: If you have questions or concerns about these test results, please contact your ordering provider or primary care team. Primary Interpreting Staff: RADIOLOGY,OUTSIDE SERVICE, Staff Physician / RADIOLOGY,OUTSIDE SERVICE [facility] Encounter Notes: All associated encounter notes This section contains the clinical notes associated to the Encounter. Date/Time Encounter Note(s) Provider Source Nov 20, 2024 03:53 PM ORTHOPEDIC SURGERY CONSULT: LOCAL TITLE: ORTHOPEDIC CONSULT STANDARD TITLE: ORTHOPEDIC SURGERY CONSULT DATE OF NOTE: NOV 20, 2024@15:53 ENTRY DATE: NOV 20, 2024@15:53:42 AUTHOR: GREG CORDERO COSIGNER: URGENCY: STATUS: COMPLETED Orthopedic Surgery Sports Medicine Clinic Note: MARGE HARTMANN is a 24 year old MALE with the following Chief complaint: Chronic left hip pain HPI: Patient is a 24-year-old male who presents to clinic today for evaluation of left hip pain. 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 He states that 2 weeks into his 4-week program he began developing pain in his left hip and knee. Currently he states that his pain seems to be anterior with some posterior radiation or posterior component. He noted difficulty and pain with running and swimming. He was told that he had IT band issues and also hamstring issues. He also simultaneously noted lateral knee issues/pain. He states that the pain sometimes originates in the knee and oftentimes in the hip as well. He feels that his hip all the way down to his knee is painful on a fairly regular basis. He had a fairly extensive workup once he got back home in May 2024 where he had an MRI of his knee and his hip and his back. There was some concern for a possible partial labral tear in his hip. He did do physical therapy while he was in the [place] but did not feel that this was significantly beneficial. He has not completed or continue to do any home exercises on his own. He did meet with a [place] and was offered a hip scope however felt that the [id number] expense would be too much so he decided to establish care with the [place]. He has never had any sort of diagnostic or therapeutic injection to the hip. His MRI was a plain MRI and not an arthrogram. He is not sure whether he had a pelvis CT. He states that currently his pain is worse with running and squatting. He notes pain that is worse with prolonged standing and sitting though he would rather sit and stand for 2 hours. He did take NSAIDs previously but has tapered off. He denies any prior history of left hip surgery. He does have some pre-existing low back pain and low back symptoms. A complete review of systems was conducted, pertinent only to the HPI noted above. Constitutional: None Eyes, Ears, Nose, Throat: No additions to above history Cardiovascular: No additions to above history Respiratory: No additions to above history GI: No additions to above history : No additions to above history Skin/Neuro: No additions to above history Endocrine/Heme/Lymph: No additions to above history Immunologic: No additions to above history Psychiatric: No additions to above history Musculoskeletal: See HPI Past Medical History: Active problems - Computerized Problem List is the source for the followin. Depression ([facility] [phone]) 2. Pain of left hip joint PAST SURGICAL HISTORY: SURGERIES - NONE FOUND Allergies: Patient has answered NKA Active and Recently Outpatient Medications (including Supplies): No Medications Found OUTPT MEDICATIONS:NONE EXAM: VS: Temp: 97.8 F [36.6 C] (09/18/2024 10:24) BP: 115/76 (09/18/2024 10:24) Pulse:63 (09/18/2024 10:24) Resp: 16 (09/18/2024 10:24) Pain: 6 (09/18/2024 10:24) Weight: WEIGHTS IN LAST 6 MONTHS: 200 (SEP 18, 2024@10:24:14) Alert and Oriented x 3 Constitutional: Well appearing male in no apparent distress HEENT: Sclera anicteric, hearing appropriate for normal conversation Neck: appears symmetric with no gross thyromegaly Pulm: No labored breathing, no wheezing CVS: Distal pulses intact Abd: Non-distended, non-tender Skin: No rashes, erythema, or induration MSK EXAM: Left hip: Skin: Intact, no scars, no swelling. Range of Motion: Flexion: 110-with some beginning discomfort. External Rotation: 50, notes some anterior stretch. Internal Rotation: 10, with groin pain. Tenderness: Anterior: None; Lateral: None Impingement Test: Positive, though patient is unable to explicitly say whether this pain is familiar whether this is the pain that brings him in today Pain with Flexion External Rotation: Positive, he states that being in a flexion externally rotated position while taking x- rays was significantly painful for him and recreated the pain that brings him in today. [place] Test: Negative 5/5 Bilateral hip abductor/adductor, knee extension/flexion, ankle dorsiflexion, plantarflexion and eversion. Sensation: Intact to light touch in the bilateral lower extremities throughout L2-S1 nerve distributions. IMAGING REVIEWED: X-rays of the pelvis and left hip were reviewed independently. False profile and Wolf lateral views were not available for review. Joint spaces intact. Lateral center edge angle is measured to be approximately 32 degrees. There is some question of slight crossover as well as an ischial spine sign on the AP pelvis, though this could just be secondary to the beam angle.This is not is notable on the AP hip view. Frog-leg view is overrotated and does not give us a good idea of whether the patient has any bony cam lesion. Outside MRI of the left hip was reviewed independently.The imaging study is largely unremarkable. There is suggestion of a slight cam lesion and flattening of the anterior superior femoral head neck junction study. No significant bony edema or herniation pits noted at the anterior superior femoral neck. The labrum appears to be largely intact. There is suggestion of a possible cleft or partial chondral labral separation on the axial view. Assessment and Plan: 24-year-old male with chronic left hip and knee pain, unclear etiology I had a very long discussion with this patient in regards to his symptoms and his findings as well as his MRI. His MRI is not very definitive in terms of his labrum. The imaging study showed a possible partial chondral labral separation that may or may not be a labral cleft or physiologic. I discussed with him that 60 to 70% of patients have labral tears in their hips even though they do not have hip pain so the incidence of labral tears are actually quite common. Whether or not this is actually the source of his pain remains to be seen. It could just be an incidental finding. Some of his exam maneuvers were concerning for potential hip impingement however the patient was not really able to verbalize whether this pain that he was experiencing was the pain that brings him in today. Ultimately it appears that he was offered a hip arthroscopy procedure by an outside orthopedic surgeon. I did tell him that while this could be a good option for him if he truly does have femoral acetabular impingement, I would not recommend a hip arthroscopy in a diagnostic fashion. The procedure itself is fairly morbid given that a capsulotomy is needed. Ultimately my recommendation at this time would be a diagnostic hip injection with local anesthetic to essentially determine whether his symptoms are intra-articular versus extra-articular. If he has a good response to the injection then we will need some extra x-rays in the form of a modified Wolf lateral view as well as a false profile view and I think he would benefit from a CT pelvis/scanogram and a hip map to assess for his femoral version as well as acetabular version. The patient was very adamant that he does not want an unnecessary surgery or the incorrect surgery. He was amenable to proceeding with a diagnostic injection to the left hip. This was ordered to be done under x-ray guidance. He will message us to let us know when the injection is scheduled so that I can see him back the same day. If for what ever reason I am not in clinic or if I am not able to see him back same day after his injection than what I recommend is that he partake in activities that will exacerbate his hip pain to assess whether he had any response to the injection. He was agreeable to this. He will plan to message us and let us know when his injection is. If he has a positive response to the injection then we will plan to proceed with the necessary additional imaging in the form of x-rays and a CT. All questions answered and he was in agreement with this plan. Total encounter time was 65 minutes including documentation and chart review. Over 50% of this was direct patient counseling and coordination of care. /tigre/ GREG CORDERO MD STAFF ORTHOPAEDIC SURGEON Signed: 11/20/2024 16:06 GREG CORDERO [facility]
--- OUTSIDE RECORDS SUMMARY | 2025-03-14 13:40 | XMS_ITS | Encounter Summary ---
Author Name [facility] Organization [facility] Address [address] [place] [id number] Care Team Providers Care Parish Worker Name Role Phone JEFFERSBAUDILIO ROJAS Primary Care Provider Samir e Insurance Providers: All historical and current [...] IS TECHN OLOGI ES Nov 05, 2003 [id number] [phone] HRUBY,CON NOR PATIENT CAREMARK ([id number]) PRESCRIPT ION AXCEL IS TECHN OLOGI ES Nov 05, 2003 [id number] [phone] HRUBY,CON NOR PATIENT [facility] VISION SPECT ERA VISIO N PLAN May 05, 2020 [id number] [id number] [phone] HRUBY,CON NOR PATIENT Selected Encounter This section includes the information on record at [place] for the Encounter. Date/Time Encounter Type Encounter Description Reason Provider Source Jan 06, 2025 10:30 AM OFFICE O/P EST MOD 30 MIN ORTHO/JOINT SURG ICD-10-CM M25.552 Pain in left hip GREG CORDERO IHE Encounter Template Text not used by [facility] Assessments - Encounter Diagnoses This section includes the primary and secondary diagnoses documented for the Encounter. Date/Time Primary/Secondary Diagnosis Diagnosis Name Provider Source Jan 06, 2025 12:14 PM PRIMARY Pain in left hip CORDEROGREG S [facility] Plan of Treatment: Future Appointments (+ 6 months) and Future Tests (+/- 45 days) The Plan of Treatment section includes future care activities for the [facility] [place] [facility] This section includes future appointments and future orders which are active, pending or scheduled. Future Appointments This section includes appointments that were scheduled to occur 6 months from the date of the Encounter, up to a maximum of 20 appointments. The data comes from all [facility]. Appointment Date/Time Appointment Type Appointme nt Facility Name Feb 24, 2025 08:20 AM AMBULATORY - NONE [place] [facility] Social History: Smoking Status (Most current) and Tobacco Use (All prior to encounter date) This section includes the most current, and the historical, smoking and tobacco- related health factors from the [place] facility where the Encounter took place. Current Smoking Status This section includes the most current smoking, or tobacco-related health factor, from the [place] facility where the Encounter took place. Date/Time Current Smoking Status Comment Facil ity Sep 18, 2024 08:27 AM VA-TOBACCO NEVER USED [facility] Radiology Reports: +/- 30 days of the [...] the Encounter. The data comes from all [facility]. Date/Time Radiology Report Provider Source Dec 10, 2024 02:26 PM ORTHO INJECTION-HI P (P): MARGE HARTMANN [id number] [phone] M Exm Date: DEC 10, 2024@14:26 Req Phys: CORDERO,GREG S Pat Loc: [facility] CORDERO (Req'g L Img Loc: MAIN X-RAY Service: [place] [address] (Case [id number] COMPLETE) INJECTION OF HIP (RAD Detailed) CPT:87426 Proc Modifiers : LEFT Reason for Study: Left hip pain - lidocaine only injection (Case [id number] COMPLETE) FLUORO GUIDE FOR NEEDLE PLACEMENT(RAD Detailed) CPT:87177 Proc Modifiers : LEFT Clinical History: Diagnostic Injection Specific Joint location: Left hip joint IS NOT under investigation for COVID-19 or is COVID-19 negative Left hip pain - lidocaine only injection Contact number for responsible provider who can be reached for any questions or notifications of critical findings: Greg Cordero n/ede LAST CREATININE 1.0 (09/18/24) Report Status: Verified Date Reported: DEC 10, 2024 Date Verified: DEC 10, 2024 Boarding Machine Operator E-Sig:/AB/LESLIE BUTCHER DO Report: EXAMINATION: INJECTION OF HIP, FLUORO GUIDE FOR NEEDLE PLACEMENT S&I Reason for Study: Left hip pain - lidocaine only injection Diagnostic Injection Specific Joint location: Left hip joint [place] IS NOT under investigation for COVID-19 or is COVID-19 negative Left hip pain - lidocaine only injection Contact number for responsible provider who can be reached for any questions or notifications of critical findings: Greg Cordero n/a LAST CREATININE 1.0 COMPARISON: Radiograph [...] obtained and documented. Time-out performed according to [place] protocol with the other medical personnel present. [...] 12/10/2024 4:30 PM Primary Interpreting Staff: LESLIE BUTCHER DO, RADIOLOGIST (Boarding Machine Operator) /LESLIE HOLLINGSWORTH [facility] Encounter Notes: All associated encounter notes This section contains the clinical notes associated to the Encounter. Date/Time Encounter Note(s) Provider Source Jan 06, 2025 12:08 PM ORTHOPEDIC SURGERY ATTENDING NOTE: LOCAL TITLE: ORTHOPEDIC CLINIC NOTE STANDARD TITLE: ORTHOPEDIC SURGERY ATTENDING NOTE DATE OF NOTE: JAN 06, 2025@12:08 ENTRY DATE: JAN 06, 2025@12:08:19 AUTHOR: GREG CORDERO COSIGNER: URGENCY: STATUS: COMPLETED Ortho clinic note Patient is a 24-year-old male who returns to clinic today for follow-up of his left hip. He had a local anesthetic only diagnostic injection to the left hip done at the beginning of December. He had sent us a message afterwards describing his response to the injection, though unfortunately the patient states that it was somewhat inconclusive. He states that the injection helped with groin pain that he had which comprises about 20% of his overall pain picture. However he continued to have glute tingling and pain, lateral thigh pain as well as lateral knee pain. He states that the groin pain relief lasted for about several hours but then returned. He does not feel that his groin pain component is a significant part of his overall pain picture. I did explain to him that the response to the diagnostic injection can oftentimes be a preview to the relief he could expect after a hip scope surgery. Given that his relief only comprised about 20% of his overall pain picture, I am not sure that a hip arthroscopy procedure would be significantly beneficial for him. My concern is that despite a large procedure and a long recovery, he would still have fairly significant residual pain that would be to satisfactory for him. The patient agreed with me. He had some questions today whether his diagnosis could be piriformis syndrome though he did not demonstrate any piriformis pain on exam today. He actually had more tenderness to palpation over his PSIS and continues to have pain that is worsened when in MARCIANO position. I do think that he has some IT band related issues comprising his lateral thigh pain however beyond therapy and foam rolling I am not sure that I have a good solution for that. Ultimately I think he has multiple issues that are contributing to his overall pain picture. Patient may benefit from an evaluation of his SI joint and some SI joint focused physical therapy which I do not think we offer here. He could also have a discussion with the physical medicine and rehab department about potential modalities and other therapies that they could potentially offer to help with his IT band symptoms or even his SI joint. I am not sure what his options would be. We also briefly discussed acupuncture but he would like to defer that at this time. Ultimately I think given that he is not a great hip arthroscopy candidate, he would be better served with a nonoperative musculoskeletal pain provider. I did place a consult for physical medicine and rehabilitation. He will await their scheduling call. He will let us know if he develops any new questions or concerns in the future but formal orthopedic surgery follow-up is not necessary. /ab/ GREG CORDERO MD STAFF ORTHOPAEDIC SURGEON Signed: 01/06/2025 12:14 GREG CORDERO [facility]
--- OUTSIDE RECORDS SUMMARY | 2025-03-14 13:40 | XMS_ITS | Encounter Summary ---
Author Name [facility] [place] [facility] Address [address] [place] [id number] Care Team Providers Care Visual Stylist Name Role Phone BAUDILIO JEFFERS Primary Care Provider Samir e Insurance Providers: [...] IS TECHN OLOGI ES Nov [birth year], 2003 [id number] [phone] HRUBY,CON NOR PATIENT CAREMARK ([id number]) PRESCRIPT ION AXCEL IS TECHN OLOGI ES Nov 05, 2003 [id number] [phone] HRUBY,CON NOR PATIENT [facility] VISION VISION SPECT ERA VISIO N PLAN May 05, 2020 [id number] [phone] HRUBY,CON NOR PATIENT Selected Encounter This section includes the information on record at [place] for the Encounter. Date/Time Encounter Type Encounter Description Reason Pro vider Source Feb 24, 2025 12:00 PM Outpatient Encounter ORTHO/JOINT SURG IHE Encounter Template Text not used by [facility] Social History: Smoking Status (Most current) and Tobacco Use (All prior to encounter date) This section includes the most current, and the historical, smoking and tobacco- related health factors from the [place] facility where the Encounter took place. Current Smoking Status This section includes the most current smoking, or tobacco-related health factor, from the [place] facility where the Encounter took place. Date/Time Current Smoking Status Comment Facil ity Sep 18, 2024 08:27 AM VA-TOBACCO NEVER USED [facility] Encounter Notes: All associated encounter notes This section contains the clinical notes associated to the Encounter. Date/Time Encounter Note(s) Provider Source Feb 24, 2025 12:00 PM NONVA CONSULT: LOCAL TITLE: COMMUNITY CARE CONSULT RESULT EC&R MISC STANDARD TITLE: NONVA CONSULT DATE OF NOTE: FEB 24, 2025@12:00 ENTRY DATE: MARCH 08, 2025@16:19:06 AUTHOR: KING JUAREZ EXP COSIGNER: URGENCY: STATUS: COMPLETED VistA Imaging - Scanned Document SCANNED DOCUMENT SIGNATURE NOT REQUIRED Electronically Filed: 03/08/2025 by: KING JUAREZ, RN poleyard supervisor Scale And Skip Car Operator KING JUAREZ [facility]
--- OUTSIDE RECORDS SUMMARY | 2025-03-14 13:40 | XMS_ITS | Encounter Summary ---
Author Name [facility] Organization [facility] Address [address] [place] [id number] Care Team Providers Care Account Liaison [facility] Name Role Phone BAUDILIO JEFFERS Primary Care [...] IS TECHN OLOGI ES Nov 05, 2003 [id number] [phone] HRUBY,CON NOR PATIENT [place] ([id number]) PRESCRIPT ION AXCEL IS TECHN OLOGI ES Nov 05, 2003 [id number] [phone] HRUBY,CON NOR PATIENT [facility] VISION VISION SPECT ERA VISIO N PLAN May 05, 2020 [id number] [phone] HRUBY,CON NOR PATIENT Selected Encounter This section includes the information on record at [place] for the Encounter. Date/Time Encounter Type Encounter Description Reason Provider Source Sep 18, 2024 10:15 AM OFFICE O/P EST HI 40 MIN PRIMARY CARE/MEDICINE ICD-10-CM M25.552 Pain in left hip BAUDILIO JEFFERS [place] Encounter Template Text not used by [place] Assessments - Encounter Diagnoses This section includes the primary and secondary diagnoses documented for the Encounter. Date/Time Primary/Secondary Diagnosis Diagnosis Name Provider Source Sep 18, 2024 11:31 AM PRIMARY Pain in left hip BAUDILIO JEFFERS [facility] Sep 18, 2024 11:31 AM SECONDARY Depression, unspecified BAUDILIO JEFFERS [facility] Plan of Treatment: Future Appointments (+ 6 months) and Future Tests (+/- 45 days) The Plan of Treatment section includes future care activities for the patient from [facility]. This section includes future appointments and future orders which are active, pending or scheduled. Future Appointments This section includes appointments that were scheduled to occur 6 months from the date of the Encounter, up to a maximum of 20 appointments. The data comes from all [facility]. Appointment Date/Time Appointment Type Appointme nt Facility Name Nov 20, 2024 02:30 PM AMBULATORY - NONE [facility] Nov 20, 2024 03:00 PM AMBULATORY - SURGERY [facility] Dec 10, 2024 02:45 PM AMBULATORY - NONE [facility] Jan 06, 2025 10:30 AM AMBULATORY - SURGERY [facility] Feb 24, 2025 08:20 AM AMBULATORY - NONE [facility] Active, Pending, and Scheduled Orders This section includes a listing of several types of active, pending, and scheduled orders, including clinic medications orders, diagnostic test orders, procedure orders and consult orders; where the start date of the order is 45 days before the date of the Encounter or 45 days after the date of theEncounter. The data comes from all [facility]. Test Date/Time Test Type Test Details Facility Name Sep 18, 2024 12:00 AM Laboratory - Chemi stry Order ANTI-HEP C(EIA) SERUM SP ONCE [facility] Lab Results: +/- 30 days of the encounter This section includes the Chemistry and Hematology Lab Results on record with [place] for the patient. Radiology Reports and Pathology Reports are provided separately, in subsequent sections. Lab Results This section contains the Chemistry/Hematology Results that were resulted 30 days before or 30 daysafter the date of the Encounter. Date/Time Source Result Type Result - Unit Interpretation Reference Range Specimen Type Comment Sep 18, 2024 11:[address] [facility] CBC & DIFF BLOOD Specimen Type: BLOOD Comment: Automated Differential Performed Ordering Provider: BAUDILIO JEFFERS Report Released Date/Time: Sep 18, 2024 11:05 AM Reporting Lab: [facility] [id number] Performing Lab: [facility] [id number] WBC 6.0 4.0-11.0 RBC 5.16 4.60-6.20 HGB 15.2 g/dL 13.5-17.9 HCT 44.5 41.0-54.0 MCV 86.2 fL 80.0-100.0 MCH 29.5 pg 27.0-33.0 MCHC 34.2 g/dL 32.0-37.5 PLT 181 150-400 MPV 10.0 fL 9.1-13.0 NEUT 56.8 40.0-80.0 LYMPHS 32.5 15.0-45.0 MONO 8.5 2.0-12.0 EOSINO 1.3 0.0-6.0 BASO 0.7 0.0-2.0 RDW 11.8 11.5-14.5 ABS LYMPH 1.9 1.0-4.0 ABS MONO 0.5 0.1-1.0 ABS NEUT 3.4 2.0-7.7 ABS EOS 0.1 0.0-0.5 ABS BASO 0.0 0.0-0.2 IG(META,MYELO,PRO) 0.2 ABS IMMATURE GRAN 0.0 0.0-0.1 Sep 18, 2024 11:[address] [facility] BASIC METABOLIC PANEL+MG PLASMA Spe cimen Type: PLASMA No comment entered. Ordering Provider: BAUDILIO JEFFERS Report Released Date/Time: Sep 18, 2024 11:05 AM Reporting Lab: [facility] [id number] Performing Lab: [facility] [id number] CREATININE 1.0 mg/dL 0.7-1.2 UREA NITROGEN 21 mg/dL 8-26 GLUCOSE 71 mg/dL 70-100 SODIUM 138 mmol/L 136-145 POTASSIUM 4.0 mmol/L 3.5-5.1 CHLORIDE 107 mmol/L 98-107 CO2 24 mmol/L 22-29 CALCIUM 9.1 mg/dL 8.4-10.2 MAGNESIUM 2.1 mg/dL 1.6-2.6 ANION GAP 7 mmol/L 5-15 .CREAT EGFR(CKD-EPI) >90 >60 Sep 18, 2024 11:[address] [facility] LIPID PANEL,NON-FASTING PLASMA Spec imen Type: PLASMA No comment entered. Ordering Provider: BAUDILIO JEFFERS Report Released Date/Time: Sep 18, 2024 11:05 AM Reporting Lab: [facility] [id number] Performing Lab: [facility] [phone] CHOLESTEROL 144 mg/dL <199 .HDL 36 mg/dL L >40 LDL CALCULATION 79 mg/dL <99 VLDL CALCULATION 29 mg/dL <29 NON HDL CHOLESTEROL 108 mg/dL <129 TRIG(NON FASTING) 144 mg/dL <149 Vital Signs: All taken on the encounter date This section contains inpatient and outpatient Vital Signs collected on the date of the Encounter. Date/Time Temperature Pulse Blood Pressure Respiratory Rate SP02 Pain Height Weight Body Mass Index Source Sep 18, 2024 10:24 AM 97.8 63 115/76 16 96 6 73 200 26 [facility] Social History: Smoking Status (Most current) and Tobacco Use (All prior to encounter date) This section includes the most current, and the historical, smoking and tobacco- related health factors from the [place] facility where the Encounter took place. Current Smoking Status This section includes the most current smoking, or tobacco-related health factor, from the [place] facility where the Encounter took place. Date/Time Current Smoking Status Comment [facility] Sep 18, 2024 08:27 AM VA-TOBACCO NEVER USED [facility] Encounter Notes: All associated encounter notes This section contains the clinical notes associated to the Encounter. Date/Time Encounter Note(s) Provider Source Nov 06, 2024 07:36 AM ADDENDUM: LOCAL TITLE: Addendum STANDARD TITLE: ADDENDUM DATE OF NOTE: NOV 06, 2024@07:36:04 ENTRY DATE: NOV 06, 2024@07:36:06 AUTHOR: ECTOR JOSUE EXP COSIGNER: URGENCY: STATUS: COMPLETED MRI images have been uploaded. Please resubmit consult. Also please ask the patient to also have XR and CT sent over if possible. Thanks! /tigre/ Ector Josue PA-C Physician Rounding And Backing Machine Operator Signed: 11/06/2024 07:37 Receipt Acknowledged By: 11/06/2024 09:39 /tigre/ Baudilio Jeffers MD Physician 11/07/2024 09:36 /tigre/ NINA EMERSON Registered Nurse --- Original Document --- 09/18/24 MEDICINE CLINIC NOTE: Nurse's notes reviewed from today. MARGE HARTMANN is a 24 year old MALE with the following Chief complaint: establishing care. Assessment and Plan: # left hip partial labral tear: MRI done at [facility] in january 2024. he has done PT plan: ortho referral done. # depression, no SI. declined MH evaluation # HM: - tobacco: never - etoh: social only. labs today. RTC annual. HPI/ROS: - here for left hip pain since 2021, persistent, exacerbated if he doesn't change his posture. Dx with labral tear at [facility] but couldn't afford surgery. wants to see ortho. - takes ibu 800 mg once daily as needed. - depression, no SI. Problem List - Active - NONE FOUND Allergies: No Allergy Assessment EXAM: Last Vital Signs: BP: 115/76 (09/18/2024 10:24) Heart Rate: 63 (09/18/2024 10:24) Respirations: 16 (09/18/2024 10:24)/min Temperature: 97.8 F [36.6 C] (09/18/2024 10:24) Pain: 6 (09/18/2024 10:24) BMI: 26.4 O2 Sat: 96% (09/18/2024 10:24) General Appearance: NAD Mental Status: alert Neck: supple Chest/T Spine: Cardiac: s1s2 rrr JVP: Lungs: clear b/l Abdomen: soft NT Extremities: - lateral rotation of left hip causes tightness in left hip. Edema ()None ()1+ ()2+ ()3+ ()4+ Pulses ()GRINDER SET UP OPERATOR CENTERLESS ()1+ ()2+ ()3+ ()4+ Gait: Nl Data/Labs: pending Medication Reconciliation: Education Evaluations *Was medication education provided for NEW medications or CHANGES to medications? (including medication name, dose, route, reason for use, and potential side effects). No new medications or medication changes during this encounter. TERATOGENIC MED & CONTRACEPTION REVIEW (Optional)... ======= MEDICATION RECONCILIATION ======= Active and Recently Outpatient Medications (including Supplies): No Medications Found 45 min spent on vets care today, > 50% f2f. /peterson Jeffers MD Physician Signed: 09/18/2024 11:31 09/18/2024 ADDENDUM STATUS: COMPLETED Follow-Up Pos PTSD/Depression: I have reviewed the results of the Mental Health screens and have evaluated the patient. Based on the evaluation, the following disposition plan will be implemented: No further intervention is needed at this time. Contact information and instructions for accessing emergency services provided. /peterson Jeffers MD Physician Signed: 09/18/2024 11:31 09/24/2024 ADDENDUM STATUS: COMPLETED Plz inform that ortho consult cancelled for now. Vet to have all outside imaging pushed to [facility] for review. once done plz ask vet to msg me and I will re-consult ortho. thx. /peterson Jeffers MD Physician Signed: 09/24/2024 08:21 Receipt Acknowledged By: 09/24/2024 11:43 /es/ DWAIN HIDALGO RN RN PACT Jewel Staker 11/03/2024 ADDENDUM STATUS: COMPLETED vet had MRI of left hip done at [facility] in january 2024. [facility] - Ortho plz confirm that MRI left hip from january 2024 will be acceptable for the consult to be accepted? or he still needs more recent imagining? thanks! /peterson Jeffers MD Physician Signed: 11/03/2024 15:29 Receipt Acknowledged By: 11/04/2024 07:51 /tigre/ TAYLOR CARDONA NP NURSE PRACTITIONER for MARIKA MUNOZ 11/03/2024 ADDENDUM STATUS: COMPLETED Consult reviewed. Consult may be resubmitted once outside imaging is uploaded (at least MRI), but ideally CT and plain XRs as well. I just sent a message to the file room to see if this has been received electronically. Per chart review, it appears that the most recent outside x-rays may be from 08/09/2023. If he hasn't had more recent x-rays performed, updated x-rays could be obtained on the day of his ortho visit. /tigre/ Ector Josue PA-C Physician Rounding And Backing Machine Operator Signed: 11/03/2024 16:01 Receipt Acknowledged By: 11/04/2024 11:05 /tigre/ Baudilio Jeffers MD Physician 11/04/2024 ADDENDUM STATUS: COMPLETED Plz call vet and discuss: - I have received hip MRI report from [facility] but not the images. plz have vet contact [facility] to [facility] so that it is avaiable for orthopedics to review. this needs to be done prior to scheduling ortho appt. plz have vet SM me once images are sent over. - FYI: once ortho appt is scheduled, he will need an updated X-ray of hip on the same date, prior to appt. this will be scheduled once dates are confirmed. - plz ask vet if he has any allergies and update in CPRS. thank you! /peterson Jeffers MD Physician Signed: 11/04/2024 11:11 Receipt Acknowledged By: 11/04/2024 15:42 /tigre/ NINA EMERSON Registered Nurse 11/04/2024 ADDENDUM STATUS: COMPLETED - Phoned pt and update on providers directive: Discuss: >>>>>>>>>>>>>>>>>>>>>>>>>> >>>>>>>>>>>>>>>>>>>>>>>>>> >>> - Received hip MRI report from [facility] but no images. - Requested pt contact [facility] Medical Records Dept to [facility] so that it is avaiable for orthopedics to review. - Explained this needs to be done prior to scheduling ortho appt. - Encouraged pt to send Secure Message that images were sent. - EXPLAINED: Once ortho appt is scheduled, he will need an updated X-ray of hip on the same date, prior to appt. this will be scheduled once dates are confirmed. - Denies any new allergies. /tigre/ NINA EMERSON Registered Nurse Signed: 11/04/2024 15:49 Receipt Acknowledged By: 11/04/2024 15:50 /peterson Jeffers MD Physician 11/06/2024 ADDENDUM STATUS: COMPLETED Called vet and informed him of orthopedics consult being re-submitted and radiology will call him to have the hip X-ray prior to ortho appointment. /tigre/ Baudilio Jeffers MD Physician Signed: 11/06/2024 09:[address] [facility] Nov 04, 2024 03:43 PM ADDENDUM: LOCAL TITLE: Addendum STANDARD TITLE: ADDENDUM DATE OF NOTE: NOV 04, 2024@15:43:35 ENTRY DATE: NOV 04, 2024@15:43:37 AUTHOR: NINA EMERSON COSIGNER: URGENCY: STATUS: COMPLETED - Phoned pt and update on providers directive: Discuss: >>>>>>>>>>>>>>>>>>>>>>>>>> >>>>>>>>>>>>>>>>>>>>>>>>>> >>> - Received hip MRI report from [facility] but no images. - Requested pt contact [facility] Medical Records Dept to [facility] so that it is avaiable for orthopedics to review. - Explained this needs to be done prior to scheduling ortho appt. - Encouraged pt to send Secure Message that images were sent. - EXPLAINED: Once ortho appt is scheduled, he will need an updated X-ray of hip on the same date, prior to appt. this will be scheduled once dates are confirmed. - Denies any new allergies. /es/ NINA EMERSON Registered Nurse Signed: 11/04/2024 15:49 Receipt Acknowledged By: 11/04/2024 15:50 /tigre/ Baudilio Jeffers MD Physician --- Original Document --- 09/18/24 MEDICINE CLINIC NOTE: Nurse's notes reviewed from today. MARGE HARTMANN is a 24 year old MALE with the following Chief complaint: establishing care. Assessment and Plan: # left hip partial labral tear: MRI done at [facility] in january 2024. he has done PT plan: ortho referral done. # depression, no SI. declined MH evaluation # HM: - tobacco: never - etoh: social only. labs today. RTC annual. HPI/ROS: - here for left hip pain since 2021, persistent, exacerbated if he doesn't change his posture. Dx with labral tear at [facility] but couldn't afford surgery. wants to see ortho. - takes ibu 800 mg once daily as needed. - depression, no SI. Problem List - Active - NONE FOUND Allergies: No Allergy Assessment EXAM: Last Vital Signs: BP: 115/76 (09/18/2024 10:24) Heart Rate: 63 (09/18/2024 10:24) Respirations: 16 (09/18/2024 10:24)/min Temperature: 97.8 F [36.6 C] (09/18/2024 10:24) Pain: 6 (09/18/2024 10:24) BMI: 26.4 O2 Sat: 96% (09/18/2024 10:24) General Appearance: NAD Mental Status: alert Neck: supple Chest/T Spine: Cardiac: s1s2 rrr JVP: Lungs: clear b/l Abdomen: soft NT Extremities: - lateral rotation of left hip causes tightness in left hip. Edema ()None ()1+ ()2+ ()3+ ()4+ Pulses ()GRINDER SET UP OPERATOR CENTERLESS ()1+ ()2+ ()3+ ()4+ Gait: Nl Data/Labs: pending Medication Reconciliation: Education Evaluations *Was medication education provided for NEW medications or CHANGES to medications? (including medication name, dose, route, reason for use, and potential side effects). No new medications or medication changes during this encounter. TERATOGENIC MED & CONTRACEPTION REVIEW (Optional)... ======= MEDICATION RECONCILIATION ======= Active and Recently Outpatient Medications (including Supplies): No Medications Found 45 min spent on vets care today, > 50% f2f. /peterson Jeffers MD Physician Signed: 09/18/2024 11:31 09/18/2024 ADDENDUM STATUS: COMPLETED Follow-Up Pos PTSD/Depression: I have reviewed the results of the Mental Health screens and have evaluated the patient. Based on the evaluation, the following disposition plan will be implemented: No further intervention is needed at this time. Contact information and instructions for accessing emergency services provided. /peterson Jeffers MD Physician Signed: 09/18/2024 11:31 09/24/2024 ADDENDUM STATUS: COMPLETED Plz inform that ortho consult cancelled for now. Vet to have all outside imaging pushed to [facility] for review. once done plz ask vet to msg me and I will re-consult ortho. thx. /tigre/ Baudilio Jeffers MD Physician Signed: 09/24/2024 08:21 Receipt Acknowledged By: 09/24/2024 11:43 /es/ DWAIN HIDALGO, RN RN PACT Jewel Staker 11/03/2024 ADDENDUM STATUS: COMPLETED vet had MRI of left hip done at [facility] in january 2024. [facility] - Ortho plz confirm that MRI left hip from january 2024 will be acceptable for the consult to be accepted? or he still needs more recent imagining? thanks! /tigre/ Baudilio Jeffers MD Physician Signed: 11/03/2024 15:29 Receipt Acknowledged By: 11/04/2024 07:51 /tigre/ TAYLOR CARDONA NP NURSE PRACTITIONER for MARIKA MUNOZ 11/03/2024 ADDENDUM STATUS: COMPLETED Consult reviewed. Consult may be resubmitted once outside imaging is uploaded (at least MRI), but ideally CT and plain XRs as well. I just sent a message to the file room to see if this has been received electronically. Per chart review, it appears that the most recent outside x-rays may be from 08/09/2023. If he hasn't had more recent x-rays performed, updated x-rays could be obtained on the day of his ortho visit. /es/ Ector Josue PA-C Physician Rounding And Backing Machine Operator Signed: 11/03/2024 16:01 Receipt Acknowledged By: 11/04/2024 11:05 /tigre/ Baudilio Jeffers MD Physician 11/04/2024 ADDENDUM STATUS: COMPLETED Plz call vet and discuss: - I have received hip MRI report from [facility] but not the images. plz have vet contact [facility] to [facility] so that it is avaiable for orthopedics to review. this needs to be done prior to scheduling ortho appt. plz have vet SM me once images are sent over. - FYI: once ortho appt is scheduled, he will need an updated X-ray of hip on the same date, prior to appt. this will be scheduled once dates are confirmed. - plz ask vet if he has any allergies and update in CPRS. thank you! /peterson Jeffers MD Physician Signed: 11/04/2024 11:11 Receipt Acknowledged By: 11/04/2024 15:42 /tigre/ NINA EMERSON Registered Nurse NINA EMERSON [facility] Nov 04, 2024 11:06 AM ADDENDUM: LOCAL TITLE: Addendum STANDARD TITLE: ADDENDUM DATE OF NOTE: NOV 04, 2024@11:06:41 ENTRY DATE: NOV 04, 2024@11:06:42 AUTHOR: BAUDILIO JEFFERS EXP COSIGNER: URGENCY: STATUS: COMPLETED Plz call vet and discuss: - I have received hip MRI report from [facility] but not the images. plz have vet contact [facility] to push MRI images to [facility] system so that it is avaiable for orthopedics to review. this needs to be done prior to scheduling ortho appt. plz have vet SM me once images are sent over. - FYI: once ortho appt is scheduled, he will need an updated X-ray of hip on the same date, prior to appt. this will be scheduled once dates are confirmed. - plz ask vet if he has any allergies and update in CPRS. thank you! /peterson Jeffers MD Physician Signed: 11/04/2024 11:11 Receipt Acknowledged By: 11/04/2024 15:42 /tigre/ NINA EMERSON Registered Nurse --- Original Document --- 09/18/24 MEDICINE CLINIC NOTE: Nurse's notes reviewed from today. MARGE HARTMANN is a 24 year old MALE with the following Chief complaint: establishing care. Assessment and Plan: # left hip partial labral tear: MRI done at [facility] in january 2024. he has done PT plan: ortho referral done. # depression, no SI. declined MH evaluation # HM: - tobacco: never - etoh: social only. labs today. RTC annual. HPI/ROS: - here for left hip pain since 2021, persistent, exacerbated if he doesn't change his posture. Dx with labral tear at [facility] but couldn't afford surgery. wants to see ortho. - takes ibu 800 mg once daily as needed. - depression, no SI. Problem List - Active - NONE FOUND Allergies: No Allergy Assessment EXAM: Last Vital Signs: BP: 115/76 (09/18/2024 10:24) Heart Rate: 63 (09/18/2024 10:24) Respirations: 16 (09/18/2024 10:24)/min Temperature: 97.8 F [36.6 C] (09/18/2024 10:24) Pain: 6 (09/18/2024 10:24) BMI: 26.4 O2 Sat: 96% (09/18/2024 10:24) General Appearance: NAD Mental Status: alert Neck: supple Chest/T Spine: Cardiac: s1s2 rrr JVP: Lungs: clear b/l Abdomen: soft NT Extremities: - lateral rotation of left hip causes tightness in left hip. Edema ()None ()1+ ()2+ ()3+ ()4+ Pulses ()GRINDER SET UP OPERATOR CENTERLESS ()1+ ()2+ ()3+ ()4+ Gait: Nl Data/Labs: pending Medication Reconciliation: Education Evaluations *Was medication education provided for NEW medications or CHANGES to medications? (including medication name, dose, route, reason for use, and potential side effects). No new medications or medication changes during this encounter. TERATOGENIC MED & CONTRACEPTION REVIEW (Optional)... ======= MEDICATION RECONCILIATION ======= Active and Recently Outpatient Medications (including Supplies): No Medications Found 45 min spent on vets care today, > 50% f2f. /peterson Jeffers MD Physician Signed: 09/18/2024 11:31 09/18/2024 ADDENDUM STATUS: COMPLETED Follow-Up Pos PTSD/Depression: I have reviewed the results of the Mental Health screens and have evaluated the patient. Based on the evaluation, the following disposition plan will be implemented: No further intervention is needed at this time. Contact information and instructions for accessing emergency services provided. /peterson Jeffers MD Physician Signed: 09/18/2024 11:31 09/24/2024 ADDENDUM STATUS: COMPLETED Plz inform that ortho consult cancelled for now. Vet to have all outside imaging pushed to [facility] for review. once done plz ask vet to msg me and I will re-consult ortho. thx. /tigre/ Baudilio Jeffers MD Physician Signed: 09/24/2024 08:21 Receipt Acknowledged By: 09/24/2024 11:43 /tigre/ DWAIN HIDALGO RN RN PACT Jewel Staker 11/03/2024 ADDENDUM STATUS: COMPLETED vet had MRI of left hip done at [facility] in january 2024. [facility] - Ortho plz confirm that MRI left hip from january 2024 will be acceptable for the consult to be accepted? or he still needs more recent imagining? thanks! /peterson Jeffers MD Physician Signed: 11/03/2024 15:29 Receipt Acknowledged By: 11/04/2024 07:51 /tigre/ TAYLOR CARDONA NP NURSE PRACTITIONER for MARIKA MUNOZ 11/03/2024 ADDENDUM STATUS: COMPLETED Consult reviewed. Consult may be resubmitted once outside imaging is uploaded (at least MRI), but ideally CT and plain XRs as well. I just sent a message to the file room to see if this has been received electronically. Per chart review, it appears that the most recent outside x-rays may be from 08/09/2023. If he hasn't had more recent x-rays performed, updated x-rays could be obtained on the day of his ortho visit. /tigre/ Ector Josue PA-C Physician Rounding And Backing Machine Operator Signed: 11/03/2024 16:01 Receipt Acknowledged By: 11/04/2024 11:05 /peterson Jeffers MD Physician BAUDILIO JEFFERS [facility] Nov 03, 2024 03:50 PM ADDENDUM: LOCAL TITLE: Addendum STANDARD TITLE: ADDENDUM DATE OF NOTE: NOV 03, 2024@15:50:42 ENTRY DATE: NOV 03, 2024@15:50:43 AUTHOR: ECTOR JOSUE COSIGNER: URGENCY: STATUS: COMPLETED Consult reviewed. Consult may be resubmitted once outside imaging is uploaded (at least MRI), but ideally CT and plain XRs as well. I just sent a message to the file room to see if this has been received electronically. Per chart review, it appears that the most recent outside x-rays may be from 08/09/2023. If he hasn't had more recent x-rays performed, updated x-rays could be obtained on the day of his ortho visit. /tigre/ Ector Josue PA-C Physician Rounding And Backing Machine Operator Signed: 11/03/2024 16:01 Receipt Acknowledged By: 11/04/2024 11:05 /peterson Jeffers MD Physician --- Original Document --- 09/18/24 MEDICINE CLINIC NOTE: Nurse's notes reviewed from today. MARGE HARTMANN is a 24 year old MALE with the following Chief complaint: establishing care. Assessment and Plan: # left hip partial labral tear: MRI done at [facility] in january 2024. he has done PT plan: ortho referral done. # depression, no SI. declined MH evaluation # HM: - tobacco: never - etoh: social only. labs today. RTC annual. HPI/ROS: - here for left hip pain since 2021, persistent, exacerbated if he doesn't change his posture. Dx with labral tear at [facility] but couldn't afford surgery. wants to see ortho. - takes ibu 800 mg once daily as needed. - depression, no SI. Problem List - Active - NONE FOUND Allergies: No Allergy Assessment EXAM: Last Vital Signs: BP: 115/76 (09/18/2024 10:24) Heart Rate: 63 (09/18/2024 10:24) Respirations: 16 (09/18/2024 10:24)/min Temperature: 97.8 F [36.6 C] (09/18/2024 10:24) Pain: 6 (09/18/2024 10:24) BMI: 26.4 O2 Sat: 96% (09/18/2024 10:24) General Appearance: NAD Mental Status: alert Neck: supple Chest/T Spine: Cardiac: s1s2 rrr JVP: Lungs: clear b/l Abdomen: soft NT Extremities: - lateral rotation of left hip causes tightness in left hip. Edema ()None ()1+ ()2+ ()3+ ()4+ Pulses ()GRINDER SET UP OPERATOR CENTERLESS ()1+ ()2+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 update on providers directive: Discuss: >>>>>>>>>>>>>>>>>>>>>>>>>> >>>>>>>>>>>>>>>>>>>>>>>>>> >>> - Received hip MRI report from [facility] but no images. - Requested pt contact [facility] Medical Records Dept to push MRI images to AR system so that it is avaiable for orthopedics to review. - Explained this needs to be done prior to scheduling ortho appt. - Encouraged pt to send Secure Message that images were sent. - EXPLAINED: Once ortho appt is scheduled, he will need an updated X-ray of hip on the same date, prior to appt. this will be scheduled once dates are confirmed. - Denies any new allergies. /tigre/ NINA EMERSON Registered Nurse Signed: 11/04/2024 15:49 Receipt Acknowledged By: 11/04/2024 15:50 /peterson Jeffers MD Physician 11/06/2024 ADDENDUM STATUS: COMPLETED MRI images have been uploaded. Please resubmit consult. Also please ask the patient to also have XR and CT sent over if possible. Thanks! /peterson Josue PA-C Physician Rounding And Backing Machine Operator Signed: 11/06/2024 07:37 Receipt Acknowledged By: 11/06/2024 09:39 /tigre/ Baudilio Jeffers MD Physician * AWAITING SIGNATURE * NINA EMERSON 11/06/2024 ADDENDUM STATUS: COMPLETED Called vet and informed him of orthopedics consult being re-submitted and radiology will call him to have the hip X-ray prior to ortho appointment. /peterson Jeffers MD Physician Signed: 11/06/2024 09:[address] [facility]
--- OUTSIDE RECORDS SUMMARY | 2025-03-14 13:40 | XMS_ITS | Encounter Summary ---
Author Organization [place] Address [address] [place] [address] Care Team Providers Care Floatlight Loading Supervisor Name Role Phone Unavailable Primary Care Provider Unavailabl e Encounter Details Date Type Department Care Team (Late st Contact Info) Description 02/02/2025 Telephone [facility] [address] [place] [address] Emma Simmons APRN [address] [address] Social History Tobacco Use Types Packs/Day Years Used Date Smoking Tobacco: Never Alcohol Use Standard Drinks/Week Comments No 0 (1 standard drink = 0.6 oz pur e alcohol) Sex and Gender Information Value Date Recorded Sex Assigned at Not on file 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 Radha Bella on 02/02/2025 at 2:35 PM documented in this encounter Plan of Treatment Upcoming Encounters Date Type Department Care Team (Late st Contact Info) Description 03/16/2025 10:40 AM CDT Therapy Visit [facility] [address] [facility] [address] [place] [address] Emma Simmons APRN VAMP [employer] [place] [address] Christie Powell, PT [address] [place] [address] 03/23/2025 10:40 AM CDT Therapy Visit [facility] [address] [facility] [address] [place] [phone] Emma Simmons APRN [address] [place] [address] Christie Powell, PT [address] [place] [address] 03/23/2025 4:10 PM CDT Office Visit [facility] [place] [address] [facility] [address] [place] [phone] Edwar Person MD [address] [facility] [address] [place], [place] [address] documented as of this encounter Visit Diagnoses Not on filedocumented in this encounter
--- OUTSIDE RECORDS SUMMARY | 2025-03-14 13:40 | XMS_ITS | Clinical Summary ---
Author Organization [place] Address [address] [place] [address] Care Team Providers Care Cnc Supervisor Name Role Phone No Ref-Primary, Physician Primary [...] Description 02/24/2025 8:20 AM CDT Office Visit [facility] [address] [phone] Emma Simmons APRN CNP Piriformis muscle pain (Primary Dx); Lateral pain of left hip; Muscle spasm; Numbness; Pain of left lower extremity 02/24/2025 Travel 02/02/2025 Telephone [facility] [address] [phone] Emma Simmons APRN CNP 01/27/2025 Transcribe Orders [...] file 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 Gender Identity Not on file Sexual Orientation Not on file Last Filed Vital Signs Vital Sign Reading Time Taken Comments Blood Pressure 120/78 02/24/2025 8:25 AM CDT Pulse 61 02/24/2025 8:25 AM CDT Temperature 36.1 C (97 F) 12/30/2002 1:35 PM MANAGER INVENTORY Respiratory Rate 16 02/24/2025 8:25 AM CDT [...] Description 03/16/2025 10:40 AM CDT Therapy Visit [facility] [address] [phone] Emma Simmons APRN RIGGER THIRD [address] [place], [place] [phone] Christie Powell, PT YANELI MACK JACOB [address] [place] [address] [place] [id number] 03/23/2025 10:40 AM CDT Therapy Visit [facility] [address] [facility] [address] [place] [phone] Emma Simmons APRN RIGGER THIRD [address] [place], [place] [phone] Christie Powell, PT YANELI MACK JACOB [address] [place] [address] DR MACK [place]ACOB, [place] [address] 03/23/2025 4:10 PM CDT Office Visit [facility] [place] [address] [facility] [address] [place] [address] Edwar Person MD [address] [facility] [address] [place], [place] [phone] Health Maintenance Due Date Last Done Comments [...] age to complete this topic Insurance [facility] Care Teams Cnc Supervisor Relationship Specialty Start Date End Date No Ref-Primary, Physician PCP - General 02/24/25
== END 2025-03-14 13:40 | disposition home or self-care (01) ==
LOC: ED 13:38
PROVIDERS: Emergency Provider Internal Medicine; PCP Family Medicine
DX: S61.241A Puncture wound with foreign body of left index finger without damage to nail, initial encounter (principal); W26.8XXA Contact with other sharp object(s), not elsewhere classified, initial encounter; W45.8XXA Other foreign body or object entering through skin, initial encounter; Y99.8 Other external cause status
CPT/HCPCS: 10120; 99283